=== PATIENT | female | born 1955 | race Caucasian/White ===

== ENCOUNTER 2017-04-06 18:38 | Emergency (ER) ==
[2017-04-06 18:46] VITALS: BP 160/77; TEMP 96; BMI 18.4
[2017-04-06] MEDS ORDERED: LIDOCAINE 1 % AMP 5 ML (SUTURES) SUBCUT STA (18:46)
[2017-04-06] MEDS ORDERED: TENIVAC IM ONE (18:48)
--- NOTE | 2017-04-06 19:01 | ED.PDOC ---
General ED Provider: Dr. KINJAL CANO-ER Chief Complaint: Finger Laceration Stated Complaint: i was cutting some tape and i cut my finger Time Seen by Physician: 18:45 Mode of Arrival: Walk-In Information Source: Patient, Family Exam Limitations: No limitations Primary Care Provider: ANDERS LOPEZ Nursing and Triage Documentation Reviewed and Agree: Yes Skin Complaint Exam - Laceration/Abrasion/Hand Complaint/Exam Location of Injury: Left, Digit #2 Mechanism of Injury: Laceration Onset/Duration: 45min Symptoms Are: Still present Initial Severity: Mild Current Severity: None Aggravating: Movement Alleviating: Compression Associated Signs and Symptoms: Denies: Fever, Chills, Erythema, Numbness, Tingling Differential Diagnoses: Laceration Review of Systems - Review Of Systems Constitutional: Reports: No symptoms Eyes: Reports: No symptoms Ears, Nose, Mouth, Throat: Reports: No symptoms Respiratory: Reports: No symptoms Cardiac: Reports: No symptoms GI: Reports: No symptoms : Reports: No symptoms Musculoskeletal: Reports: No symptoms Skin: Reports: No symptoms Neurological: Reports: No symptoms Endocrine: Reports: No symptoms Hematologic/Lymphatic: Reports: No symptoms All Other Systems: Reviewed and Negative Past Medical History - Past Medical History Previously Healthy: Yes Endocrine: Reports: Unknown Cardiovascular: Reports: Unknown Respiratory: Reports: Unknown Hematological: Reports: Unknown Gastrointestinal: Reports: Unknown Genitourinary: Reports: Unknown Neuro/Psych: Reports: Unknown Musculoskeletal: Reports: Unknown Cancer: Reports: Unknown Last Menstrual Period: na - Surgical History General Surgical History: Reports: Unknown - Family History Family History: Reports: Unknown - Social History Smoking Status: Never smoker Hx Substance Use: No Alcohol Screening: None Lives: With family - Immunizations Tetanus Shot up to Date: No Physical Exam - Physical Exam Appearance: Well-appearing, No pain distress, Well-nourished Pain Distress: Mild Eyes: [place], EOMI, Conjunctiva clear ENT: Ears normal, Nose normal, Oropharynx normal Neck: Supple Respiratory: Airway patent, Breath sounds clear, Breath sounds equal, Respirations nonlabored Cardiovascular: RRR, Pulses normal, No rub, No murmur GI/: Soft, Nontender, No masses, Bowel sounds normal, No Organomegaly Musculoskeletal: Normal strength, ROM intact, No edema, No calf tenderness Skin: Warm Neurological: Sensation intact, Motor intact, Reflexes intact, Cranial nerves intact, Alert, Oriented Psychiatric: Affect appropriate Procedures - Laceration/Wound Repair No standard instances Wound Description: Linear Wound Length (cm): 1.25cm index finger left hand Wound Explored: Clean Wound Irrigated: Yes Wound Prep: Hibiclens Anesthesia: Lidocaine Wound Repaired With: Sutures Suture Size and Type: 4 prolene Number of Sutures: 3 Layer Closure?: No Sterile Dressing Applied?: Yes Splint Applied?: No Sling Applied?: No Critical Care Note - Critical Care Note Total Time (mins): 0 Course - Course Orders, Labs, Meds: Orders Category Date Time Status Lidocaine HCl/Pf [Lidocaine 1 % Amp 5 ml (Sutures)] MEDS 04/06/17 18:46 Discontinued 5 ml SUBCUT ONCE STA Tetanus and Diphtheria Tox/Pf [Tenivac] MEDS 04/06/17 18:48 Discontinued 0.5 ml IM .ONCE ONE Medications Discontinued Medications Generic Name Dose Route Start Last Admin Trade Name Freq PRN Reason Stop Dose Admin Lidocaine HCl 5 ml 04/06/17 18:46 04/06/17 18:55 Lidocaine 1 % Amp 5 Ml (Sutures) SUBCUT 04/06/17 18:47 5 ml ONCE STA Administration Tetanus/Diphtheria Toxoids Adsorbed 0.5 ml 04/06/17 18:48 04/06/17 18:56 Tenivac IM 04/06/17 18:49 0.5 ml .ONCE ONE Administration Vital Signs: Temp Pulse Resp BP Pulse Ox 04/06/17 18:40 96 F L 73 16 160/77 H 97 Departure - Departure Time of Disposition: 19:01 Disposition: HOME SELF-CARE Discharge Problem: Laceration of finger Instructions: Finger Laceration (ED) Condition: Good Pt referred to PMD for follow-up: Yes Additional Instructions: sutures out in 7 days--return sooner if any signs of infection Allergies/Adverse Reactions: Allergies nabumetone [From Relafen] Adverse Reaction (Verified 03/17/15 13:24) NSAIDS (Non-Steroidal Anti-Inflamma Adverse Reaction (Verified 04/06/17 18:48) rofecoxib [From Vioxx] Adverse Reaction (Verified 03/17/15 13:24) Sulfa (Sulfonamide Antibiotics) Adverse Reaction (Unverified 06/20/13 14:04) Home Medications: Ambulatory Orders Calcium Carbonate [Calcium] 500 mg PO DAILY 06/21/13 Fexofenadine HCl [Trisha] 180 mg PO EVERY OTHER DAY 06/21/13 Montelukast Sodium [Singulair] 10 mg PO BEDTIME 06/21/13 Cary-3 Fatty Acids/Fish Oil [Fish Oil 1,000 mg Capsule] 1 each PO 1700 Tramadol HCl [Ultram] 50 mg PO BID 03/17/15 Disposition Discussed With: Patient, Family
== END 2017-04-06 19:14 | disposition home or self-care (01) ==
LOC: ED 18:38
DX: S61.211A Laceration without foreign body of left index finger without damage to nail, initial encounter (principal); W26.9XXA Contact with unspecified sharp object(s), initial encounter
CPT/HCPCS: 90471; 99283

== ENCOUNTER 2017-07-21 15:20 | Outpatient (CLI) ==
--- NOTE | 2017-07-21 16:19 | DI ---
Exam: Three x-rays of the lumbar spine. Comparison: CT performed 01/25/2016. Reason for exam: Low back pain post fall. FINDINGS: No acute fracture. There is a similar appearing anterior listhesis of L4 on L5 measuring approximate ly 8.3 mm. There is relative preservation of the lumbar lordotic curve when compared to previous imag ing. Degenerative disease is seen in the lumbosacral spine. Operative changes are seen after interv ertebral body graft spacer at L5-S1. Impression: 1. No acute fracture is seen within the lumbar spine. 2. Similar appearing anterior listhesis of L4 on L5 and operative changes at L5-S1. If clinical con cern exists, further imaging may be performed.
== END 2017-07-21 15:21 | disposition home or self-care (01) ==
LOC: RAD 15:20
PROVIDERS: ATTEND Internal Medicine
DX: M54.5 Low back pain (principal); W19.XXXA Unspecified fall, initial encounter

== ENCOUNTER 2017-07-23 18:47 | Emergency (ER) ==
[2017-07-23 18:50] VITALS: BP 132/72; TEMP 96.9; BMI 18.8
--- NOTE | 2017-07-23 19:00 | ED.PDOC ---
General ED Provider: Dr. KINJAL CANO-ER Chief Complaint: Hand Laceration Stated Complaint: was scratched by a dog claw--noting skin flap that is dark Time Seen by Physician: 18:58 Mode of Arrival: Walk-In Information Source: Patient Exam Limitations: No limitations Primary Care Provider: ANDERS LOPEZ Nursing and Triage Documentation Reviewed and Agree: Yes Skin Complaint Exam - Laceration/Abrasion/Hand Complaint/Exam Location of Injury: Left, Hand Mechanism of Injury: Abrasion, Sharp trauma Onset/Duration: one hour Symptoms Are: Still present Initial Severity: Mild Current Severity: Mild Aggravating: Movement Alleviating: Compression Associated Signs and Symptoms: Denies: Fever, Chills, Erythema, Numbness, Tingling Differential Diagnoses: Avulsion Review of Systems - Review Of Systems Constitutional: Reports: No symptoms Eyes: Reports: No symptoms Ears, Nose, Mouth, Throat: Reports: No symptoms Respiratory: Reports: No symptoms Cardiac: Reports: No symptoms GI: Reports: No symptoms : Reports: No symptoms Musculoskeletal: Reports: No symptoms Skin: Reports: No symptoms Neurological: Reports: No symptoms Endocrine: Reports: No symptoms Hematologic/Lymphatic: Reports: No symptoms All Other Systems: Reviewed and Negative Past Medical History - Past Medical History Previously Healthy: Yes Endocrine: Reports: Unknown Cardiovascular: Reports: Unknown Respiratory: Reports: Unknown Hematological: Reports: Unknown Gastrointestinal: Reports: Unknown Genitourinary: Reports: Unknown Neuro/Psych: Reports: Unknown Musculoskeletal: Reports: Unknown Cancer: Reports: Unknown Last Menstrual Period: n/a - Surgical History General Surgical History: Reports: Unknown - Family History Family History: Reports: Unknown - Social History Smoking Status: Never smoker Hx Substance Use: No Alcohol Screening: None - Immunizations Tetanus Shot up to Date: Yes (04/06/17) Physical Exam - Physical Exam Appearance: Well-appearing, No pain distress, Well-nourished Eyes: [place], EOMI, Conjunctiva clear ENT: Ears normal, Nose normal, Oropharynx normal Neck: Supple Respiratory: Airway patent Cardiovascular: RRR GI/: Soft Musculoskeletal: Normal strength Skin: Warm, Dry Neurological: Sensation intact Psychiatric: Affect appropriate, Mood appropriate Procedures - Laceration/Wound Repair No standard instances Wound Description: Flap Wound Length (cm): 1cm left hand Wound Explored: Clean Wound Irrigated: Yes Wound Prep: Hibiclens Wound Repaired With: Steri-strips Layer Closure?: No Critical Care Note - Critical Care Note Total Time (mins): 0 Course - Course Orders, Labs, Meds: Orders Category Date Time Status Wound care [ED WOUND CARE] .ONCE EMERGENCY 07/23/17 18:56 Active Vital Signs: Temp Pulse Resp BP Pulse Ox 07/23/17 18:48 96.9 F L 88 20 132/72 96 Departure - Departure Time of Disposition: 19:00 Disposition: HOME SELF-CARE Discharge Problem: Laceration of hand Instructions: Skin Avulsion (ED) Condition: Good Pt referred to PMD for follow-up: Yes Additional Instructions: keep clean and dry=--wash with soap and water and appy antb ointment till healed --keep covered till healed Allergies/Adverse Reactions: Allergies nabumetone [From Relafen] Adverse Reaction (Verified 07/23/17 18:50) NSAIDS (Non-Steroidal Anti-Inflamma Adverse Reaction (Verified 07/23/17 18:50) rofecoxib [From Vioxx] Adverse Reaction (Verified 07/23/17 18:50) Sulfa (Sulfonamide Antibiotics) Adverse Reaction (Verified 07/23/17 18:50) Home Medications: Ambulatory Orders Calcium Carbonate [Calcium] 500 mg PO DAILY 06/21/13 Montelukast Sodium [Singulair] 10 mg PO BEDTIME 06/21/13 Harper-3 Fatty Acids/Fish Oil [Fish Oil 1,000 mg Capsule] 1 each PO 1700 Tramadol HCl [Ultram] 50 mg PO BID 03/17/15 Disposition Discussed With: Patient
== END 2017-07-23 19:04 | disposition home or self-care (01) ==
LOC: ED 18:47
DX: S61.412A Laceration without foreign body of left hand, initial encounter (principal); Y93.K9 Activity, other involving animal care
CPT/HCPCS: 99282

== ENCOUNTER 2017-08-06 18:14 | Outpatient (CLI) ==
--- NOTE | 2017-08-07 07:55 | DI ---
EXAM: Cervical spine radiographs. HISTORY: Neck pain. COMPARISON: None available. TECHNIQUE: 5 views. FINDINGS: The normal curvature and alignment are maintained. Vertebral body heights are normal. Th ere is mild loss of disc height at C4-5 and C5-6. Mild multilevel endplate osteophyte formation note d. Mild uncovertebral hypertrophy and facet arthropathy noted probably causing multilevel neural for aminal narrowing on the left. No fracture or subluxation identified. Prevertebral soft tissues are unremarkable. Lung apices are clear. There are suture anchors present in both humeri. IMPRESSION: Multilevel degenerative changes as described. Consider correlation with MRI as warranted.
== END 2017-08-06 18:15 | disposition home or self-care (01) ==
LOC: RAD 18:14
PROVIDERS: ATTEND Internal Medicine
DX: M54.2 Cervicalgia (principal)

== ENCOUNTER 2017-08-18 12:08 | Outpatient (CLI) ==
--- NOTE | 2017-08-18 13:34 | MRI ---
EXAM: MRI cervical spine without IV contrast. DATE: 18 August 2017. HISTORY: Neck pain. TECHNIQUE: Sagittal and axial T1W and T2W sequences of the cervical spine along with sagittal IR and coronal T2W sequences were obtained using 1.5 Imelda magnet. No IV contrast. COMPARISON: C-spine x-rays 08/06/2017. CT head 23 Mar 2013. FINDINGS: There is no cervical scoliosis. No acute c-spine fracture, subluxation, osseous malignanc y, or jumped facet is evident. Cervical vertebrae normal in height. Bone marrow signal is overall n ormal. Tiny anterior osteophytes are seen at C4-5. Intervertebral discs are uniform in height. Cer vical and upper thoracic spinal cord reveals no syrinx, cord edema, myelomalacia, or neoplasm. Visible brainstem reveals small areas of central T2W/IR hyperintensity suggesting small vessel diseas e. There is no Chiari one malformation. A few inferior left mastoid air cells have T2W bright mucos al thickening. No suspicious neck mass, cervical lymphadenopathy, apical lung mass, pneumonia, or pl eural effusion is detected. Segmental analysis: C2-3: Normal. C3-4: Small posterior disc/osteophyte complex (1.8 mm AP) does not contact the cord. Canal is 12.6 mm AP. Minor right and mild left foraminal stenoses due to uncinate hypertrophy. C4-5: Broad posterior disc bulge (2 mm AP) does not contact the cord. Canal is 10.6 mm AP. Minor b ilateral foraminal stenoses due to uncinate hypertrophy and minor left facet disease. C5-6: Small posterior disc/osteophyte complex (2 mm AP) does not contact the cord. Canal is 10.6 mm AP. Moderate right foraminal stenosis is due to uncinate hypertrophy. C6-7: Posterior midline disc protrusion (1.2 mm AP x 5.5 mm transverse) does not contact the cord. Canal is 12.6 mm AP. Each foramen is patent. C7-T1: Normal. T1-2: Normal. IMPRESSIONS: 1. Cervical spine minor facet arthropathy and mild DDD. 2. No cervical cord compression or central canal stenosis. 3. Multilevel foraminal stenoses, especially right C5-6. 4. Moderate left mastoid air cell mucosal disease.
== END 2017-08-18 12:09 | disposition home or self-care (01) ==
LOC: RAD 12:08
PROVIDERS: ATTEND Internal Medicine
DX: M54.2 Cervicalgia (principal)

== ENCOUNTER 2018-01-11 15:17 | Outpatient (CLI) | END 2018-01-11 15:18 | disposition home or self-care (01) | LOC: LAB 15:17 | PROVIDERS: ATTEND Internal Medicine | DX: E87.1 Hypo-osmolality and hyponatremia (principal) | CPT/HCPCS: 36415; 80053 ==

== ENCOUNTER 2018-04-16 12:51 | Outpatient (CLI) | payer OTHER ==
--- NOTE | 2018-04-16 14:58 | CT ---
Exam: CT lumbar spine without intravenous contrast. Comparison: 01/25/2016. Reason for exam: Pain. FINDINGS: No acute vertebral body height loss is seen. There is similar appearing grade 1 anterior listhesis of L4 on L5. Intervertebral body graft spacer placement is seen and L5-S1. There is multi level degenerative disease with intervertebral body disc space height narrowing and osteophyte format ion. Atherosclerotic disease is seen within the abdominal aorta. T12-L1: No significant central canal or foraminal narrowing. L1-L2: Ligamentous calcification with a broad-based disc bulge resulting in impression on the thecal sac and mild to moderate central canal and foraminal narrowing. L2-L3: Broad-based disc bulge with impression on the thecal sac resulting in mild central canal and moderate foraminal stenosis. L3-L4: Broad-based disc bulge with impression on the thecal sac resulting in moderate central canal and foraminal narrowing. L4-L5: Anterior listhesis of L4 on L5 with a broad-based disc bulge resulting in moderate to marked central canal and foraminal narrowing. L5-S1: No significant central canal or foraminal narrowing. Impression: 1. No acute fracture is seen within the lumbar spine. 2. Similar appearing anterior listhesis of L4 on L5 with multilevel discogenic degenerative disease as described. 3. Similar appearing operative changes of L5-S1
--- NOTE | 2018-04-16 15:09 | CT ---
EXAM: CT left hip without contra HISTORY: Pain COMPARISON: Radiograph 11/01/2015 TECHNIQUE: CT left hip performed without intravenous contrast. Coronal and sagittal reformatted kacey ges obtained. FINDINGS: Bone mineralization is normal. No fracture or dislocation. Mild narrowing left hip joint . No focal soft tissue abnormality. Mild atherosclerotic vast calcification. IMPRESSION: Mild osteoarthritis left hip.
== END 2018-04-16 12:52 | disposition home or self-care (01) ==
LOC: RAD 12:51
PROVIDERS: ATTEND Internal Medicine
DX: M25.552 Pain in left hip (principal); M54.9 Dorsalgia, unspecified

== ENCOUNTER 2018-06-09 07:03 | Day surgery (SDC) | payer OTHER ==
[2018-06-09] MEDS: BETADINE OPTH PREP OP PRN ×2 (07:32→08:48)
[2018-06-09] MEDS: TETRACAINE 0.5% UNIT-DOSE OP PRN ×3 (07:32→08:56)
[2018-06-09] MEDS: CYCLOGYL 2% OPTH OP PRN ×3 (07:33→07:43)
[2018-06-09] MEDS ORDERED: DEX-MOXI-KETOR OPTH INJ 1/0.5/0.4 MG/ML IO ONE (07:41)
[2018-06-09] MEDS ORDERED: AK-DILATE 10% OPTH SOL OP PRN (07:41)
[2018-06-09] MEDS ORDERED: ZOFRAN 4 MG/2 ML IVP ONE (07:41)
[2018-06-09] MEDS ORDERED: LIDOCAINE 1%/PHENYLEPHRINE 1.5% BSS (SURGERY) INTRAOCULA ONE (07:41)
[2018-06-09] MEDS ORDERED: BRIMONIDINE TARTRATE 0.2% OPTH SOL OP PRN (07:41)
[2018-06-09 07:54] VITALS: TEMP 98
[2018-06-09] MEDS ORDERED: DECADRON 4 MG/ML SDV ONE (08:45)
[2018-06-09] MEDS ORDERED: VERSED ONE (08:45)
[2018-06-09] MEDS ORDERED: SUBLIMAZE ONE (08:45)
[2018-06-09] MEDS: BSS WITH EPINEPHRINE OP ONE ×2 (08:51→08:57)
[2018-06-10 11:22] VITALS: BP 124/56
== END 2018-06-09 09:40 | disposition home or self-care (01) ==
LOC: SURG 07:03
PROVIDERS: ATTEND Ophthalmology
DX: H25.13 Age-related nuclear cataract, bilateral (principal)

== ENCOUNTER 2018-06-23 07:20 | Day surgery (SDC) ==
[2018-06-23] MEDS: BETADINE OPTH PREP OP PRN ×2 (07:45→08:11)
[2018-06-23] MEDS: TETRACAINE 0.5% UNIT-DOSE OP PRN ×2 (07:45→08:11)
[2018-06-23] MEDS: CYCLOGYL 2% OPTH OP PRN ×3 (07:46→07:56)
[2018-06-23] MEDS ORDERED: ZOFRAN 4 MG/2 ML IVP ONE (07:53)
[2018-06-23] MEDS ORDERED: LIDOCAINE 1% 20 ML MDV ID STA (07:53)
[2018-06-23] MEDS ORDERED: BRIMONIDINE TARTRATE 0.2% OPTH SOL OP PRN (07:53)
[2018-06-23] MEDS ORDERED: DEX-MOXI-KETOR OPTH INJ 1/0.5/0.4 MG/ML IO ONE (07:53)
[2018-06-23] MEDS ORDERED: DECADRON 4 MG/ML SDV ONE (08:19)
[2018-06-23] MEDS ORDERED: TORADOL ONE (08:19)
[2018-06-23] MEDS ORDERED: SUBLIMAZE ONE (08:19)
[2018-06-23] MEDS ORDERED: VERSED ONE (08:19)
[2018-06-23] MEDS: LIDOCAINE 1%/PHENYLEPHRINE 1.5% BSS (SURGERY) INTRAOCULA ONE ×2 (08:28→08:29)
[2018-06-23] MEDS: BSS WITH EPINEPHRINE OP ONE ×2 (08:28→08:29)
[2018-06-23 11:06] VITALS: TEMP 97.6
[2018-06-23 16:30] VITALS: BP 128/78
== END 2018-06-23 09:15 | disposition home or self-care (01) ==
LOC: SURG 07:20
PROVIDERS: ATTEND Ophthalmology
DX: H25.11 Age-related nuclear cataract, right eye (principal)

== ENCOUNTER 2018-08-17 09:53 | Outpatient (CLI) | payer OTHER ==
--- NOTE | 2018-08-17 11:33 | DI ---
EXAM: Two views of the chest. History: Cough. Comparison: Chest radiograph 01/30/2015 Findings: Heart size is normal. No focal consolidation. No appreciable pleural fluid and no pneumo thorax. Calcified granulomas again seen within the thorax. No acute osseous abnormalities. Impression: No acute cardiopulmonary process. Old granulomatous disease. No change compared to the prior study.
== END 2018-08-17 09:54 | disposition home or self-care (01) ==
LOC: RAD 09:53
PROVIDERS: ATTEND Internal Medicine
DX: R05 Cough (principal)

== ENCOUNTER 2018-08-23 13:03 | Outpatient (CLI) | payer OTHER ==
--- NOTE | 2018-08-23 15:18 | DEXA ---
EXAM: Bone densitometry. History: Menopausal state. Findings: Evaluation of the left hip reveals a total bone mineral density of 0.797 grams per centimeter squared with T-score of negative 1.7. Evaluation of the right hip reveals a total bone mineral density of 0.761 grams per centimeter square d with T-score of negative 2.0. Impression: Osteopenia of the bilateral hips
== END 2018-08-23 13:04 | disposition home or self-care (01) ==
LOC: RAD 13:03
PROVIDERS: ATTEND Nurse Practitioner
DX: Z12.31 Encounter for screening mammogram for malignant neoplasm of breast (principal); Z78.0 Asymptomatic menopausal state
CPT/HCPCS: 77067

== ENCOUNTER 2021-04-10 18:57 | Inpatient (IN) ==
--- NOTE | 2021-04-10 19:22 | ED.PDOC ---
General ED Provider: Dr. KINJAL AVILES Chief Complaint: Constipation Stated Complaint: no bm for 6 days Time Seen by Provider: 04/10/21 18:58 Mode of Arrival: Walk-In Information Source: Patient Primary Care Provider: ANDERS LOPEZ Nursing and Triage Documentation Reviewed and Agree: Yes Does patient meet sepsis criteria?: No System Inflammatory Response Syndrome: Not Applicable Sepsis Protocol: For patient's 13 years and over: Temp is 96.8 and below OR 101 and greater Pulse >90 BPM Resp >20/minute Acutely Altered Mental Status Are patient's symptoms suggestive of a new infection, such as: -Pneumonia -Skin, Soft Tissue -Endocarditis -UTI -Bone, Joint Infection -Implantable Device -Acute Abdominal Infection -Wound Infection -Meningitis -Blood Stream Catheter Infection -Unknown GI Complaint Exam Abdominal Pain Complaint/Exam Onset: Gradual Duration: 6 days Symptoms Are: Still present Timing: Constant Initial Severity: Mild Current Severity: Moderate Location of Pain: Diffuse Character: Reports Dull and Aching Aggravating: Reports None Alleviating: Reports None Associated Signs and Symptoms: Reports Constipation Patient Rh Status: Unknown Abdominal Findings: Present None Differential Diagnoses: Constipation Review of Systems Review Of Systems Constitutional: Reports No symptoms Eyes: Reports No symptoms Ears, Nose, Mouth, Throat: Reports No symptoms Respiratory: Reports No symptoms Cardiac: Reports No symptoms GI: Reports Constipated : Reports No symptoms Musculoskeletal: Reports No symptoms Skin: Reports No symptoms Neurological: Reports No symptoms Endocrine: Reports No symptoms Hematologic/Lymphatic: Reports No symptoms All Other Systems: Reviewed and Negative [facility] Medical History Active asthma Leg length discrepancy Scoliosis Family History FATHER Cancer CHF (congestive heart failure) Mother CHF (congestive heart failure) AUNT Diabetes Ovarian cancer Social History Smoking and tobacco status: Never smoker Passive smoking exposure: No Second hand smoke exposure: No Smoking risk assessment performed: No Alcohol intake: current Alcohol intake frequency: holidays/special occasions only Counseling given: No Counseling provided: none Counseling given: No Counseling provided: none Adopted: No Caregiver/support person: No Foster care: No Household members: spouse Housing: house Marital status: M Lives independently: Yes Number of children: 0 Financial difficulty paying for basics: not very hard service: No FDC: No Current occupational status: retired Current occupational exposures/hazards: No Pets and animals: Yes History of recent travel: No Sexually active: Yes Do you think of yourself as: straight/heterosexual Current gender identity: female Seatbelt use: always Helmet use: No Drives intoxicated 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 Water heater temperature set < 120 degrees: Yes Working smoke detector in home: Yes Fire extinguisher in home: Yes Carbon monoxide detector in home: Yes Firearms in home: No Surgical History History of shoulder replacement Previous back surgery Total knee replacement status Female Reproductive History Menstrual Hx Hysterectomy: Yes (2005) Hx Tubal Ligation: No Physical Exam Physical Exam Appearance: Reports Well-appearing Ill-appearing: Not Applicable Pain Distress: Mild Eyes: Reports [place], EOMI and Conjunctiva clear ENT: Reports Ears normal, Nose normal and Oropharynx normal Neck: Supple Respiratory: Reports Airway patent, Breath sounds clear and Breath sounds equal Cardiovascular: Reports RRR, Pulses normal, No rub and No murmur GI/: Reports Soft, Nontender, No masses and Bowel sounds normal Musculoskeletal: Reports Normal strength Skin: Reports Warm Neurological: Reports Sensation intact Psychiatric: Reports Affect appropriate and Mood appropriate Interpretation Radiology Interpretation Radiology Interpretation By: Radiologist Radiology Results: Positive Exam Interpreted: CT Scan Critical Care Note Critical Care Note Total Critical Care Time (mins): 0 Course Course Hematology/Chemistry: 04/10/21 19:50 04/10/21 19:50 Orders, Labs, Meds: Lab Review 04/10/21 04/10/21 19:50 19:50 WBC 7.10 RBC 3.65 L Hgb 11.6 L Hct 33.6 L MCV 92.1 MCH 31.8 H MCHC 34.5 RDW Coeff of Olivia 11.4 L Plt Count 332 Immature Gran % (Auto) 0.3 Neut % (Auto) 63.1 Lymph % (Auto) 23.9 Thurston % (Auto) 8.7 Eos % (Auto) 3.0 Baso % (Auto) 1.0 Neut # (Auto) 4.5 Lymph # (Auto) 1.7 Thurston # (Auto) 0.6 Eos # (Auto) 0.2 Baso # (Auto) 0.1 Immature Gran # (Auto) 0.0 Sodium 122.0 L Potassium 3.90 Chloride 85.6 L Carbon Dioxide 31.0 H Anion Gap 9.30 BUN 17.8 H Creatinine 0.89 Estimated GFR (MDRD) 63.00 BUN/Creatinine Ratio 20.00 Glucose 93.4 Calcium 8.32 L Total Bilirubin 0.41 AST 54.4 H ALT 32.9 Alkaline Phosphatase 74.7 Total Protein 7.03 Albumin 4.35 Globulin 2.68 Albumin/Globulin Ratio 1.62 Orders Category Date Time Status ED ENEMA/RECTAL TUBE .ONCE EMERGENCY 04/10/21 19:42 Active ED IV/MEDIPORT/POWERPORT .ONCE EMERGENCY 04/10/21 20:20 Active CBC W/ AUTO DIFF Stat LAB 04/10/21 19:50 Completed COMPREHENSIVE METABOLIC PANEL Stat LAB 04/10/21 19:50 Completed RESPIRATORY PANEL 2.1 (PCR) Stat LAB 04/10/21 Ordered THYROID STIMULATING HORMONE Stat LAB 04/10/21 19:50 Received URINALYSIS C & S IF INDICATED Stat LAB 04/10/21 20:19 Uncollected 0.9 % Sodium Chloride [Saline Flush] MEDS 04/10/21 20:20 Ordered 1 syr IVF PRN PRN Sodium Chloride 0.9% [Sodium Chloride] 1,000 ml MEDS 04/10/21 20:20 Active IV 100 mls/hr CT ABDOMEN/PELVIS WO CONTRAST Stat RADS 04/10/21 19:10 Completed Medications Generic Name Dose Route Start Last Admin Trade Name Freq PRN Reason Stop Dose Admin Sodium Chloride 1,000 mls @ 100 mls/hr 04/10/21 20:20 Sodium Chloride IV 04/11/21 06:19 .Q10H STA Sodium Chloride 1 syr 04/10/21 20:20 0.9% Sodium Chloride 10 Ml Disp.Syrin IVF PRN PRN To flush IV Vital Signs: Temp Pulse Resp BP Pulse Ox 04/10/21 18:58 97.1 F L 101 H 20 151/84 H 97 Discharge Plan Discharge Patient Disposition: ADMITTED INPATIENT Discharge Problem: Constipation, Acute hyponatremia Prescriptions: No Action montelukast [Singulair] 10 MG tablet 10 mg PO BEDTIME RF: 0 calcium carbonate [Calcium 500] 500 MG tablet 500 mg PO BID RF: 0 telmisartan-hydrochlorothiazid [Micardis HCT] 1 EACH tablet 1 tab PO BID RF: 0 budesonide-formoterol [Symbicort] 1 PUFF HFA aerosol inhaler 2 inh INH DAILY RF: 0 Combivent Respimat 1 SPRAY mist 1 inh INH QID PRN (Reason: SHORT OF BREATH/WHEEZING) RF: 0 clonidine HCl 0.1 mg Tablet 0.1 mg PO 12 RF: 0 oxycodone-acetaminophen [Percocet] 7.5-325 mg Tablet 1 tab PO Q6-8H PRN (Reason: Pain) RF: 0 ED Provider: KINJAL AVILES Condition: Good Physician Progress Note: []
--- NOTE | 2021-04-10 19:38 | CT ---
EXAM: CT scan of the abdomen and pelvis without contrast HISTORY: Constipation. TECHNIQUE: Helical imaging of the abdomen pelvis was performed without IV contrast. 3 mm thin axial images and coronal and sagittal reconstructions were provided for interpretation. Comparison 05/09/2015. FINDINGS: No acute abnormalities are seen within the liver, spleen. The proximal ureters are normal size. The small bowel loops are normal caliber. There is a large amount of stool seen throughout t he colon. There is no bowel wall thickening. There is no free air. There is a large amount stool s een within the rectum and sigmoid colon. No retroperitoneal abnormalities are seen. Lung bases are clear. No lytic or blastic lesions are seen within the osseous structures. Postoperative changes of fusion are seen within the lower lumbar spine. IMPRESSION: There is a large amount stool seen throughout the colon compatible with the patients his tory of constipation. There is no evidence of small bowel obstruction. All CT scans are performed using dose optimization techniques as appropriate to the performed exam an d include at least one of the following: Automated exposure control, adjustment of the mA and/or kV according t o size, and the use of iterative reconstruction technique.
[2021-04-10 19:55] LABS: BASOPHILS # (AUTO) 0.1 K/uL (0-0.2); EOSINOPHILS # (AUTO) 0.2 K/ul (0.0-0.7); HEMATOCRIT 33.6 % (37.0-47.0); HEMOGLOBIN 11.6 g/dl (12.0-16.0); IMMATURE GRANULOCYTE % (AUTO) 0.3 % (0.0-5.0); LYMPHOCYTES # (AUTO) 1.7 K/uL (0.60-3.4); LYMPHOCYTES % (AUTO) 23.9 (10.0-50.0); MEAN CORPUSCULAR HEMOGLOBIN 31.8 pg (27.0-31.0); MEAN CORPUSCULAR HGB CONC 34.5 (31.8-35.4); MEAN CORPUSCULAR VOLUME 92.1 fl (81.0-99.0); MONOCYTES # (AUTO) 0.6 K/uL (0.4-2.0); MONOCYTES % (AUTO) 8.7 (0-10); NEUTROPHILS # (AUTO) 4.5 K/ul (2.0-6.9); NEUTROPHILS % (AUTO) 63.1 % (42.2-75.2); PLATELET COUNT 332 10^3/uL (140-440); RDW COEFFICIENT OF VARIATION 11.4 % (11.6-14.8); RED BLOOD COUNT 3.65 10^6/ul (4.20-5.40)
[2021-04-10 20:07] LABS: ALANINE AMINOTRANSFERASE 32.9 U/L (0-35); ALBUMIN 4.35 g/dL (3.5-5.0); ALKALINE PHOSPHATASE 74.7 U/L (53-141); ASPARTATE AMINO TRANSFERASE 54.4 U/L (14-36); BILIRUBIN,TOTAL 0.41 mg/dL (0.2-1.3); BLOOD UREA NITROGEN 17.8 mg/dL (7-17); CALCIUM 8.32 mg/dL (8.4-10.2); CHLORIDE 85.6 mmol/L (98-107); CREATININE 0.89 mg/dL (0.60-1.30); GLUCOSE 93.4 mg/dL (74-106); POTASSIUM 3.9 mmol/L (3.5-5.1); TOTAL PROTEIN 7.03 g/dL (6.3-8.2)
[2021-04-10] MEDS ORDERED: SODIUM CHLORIDE 1,000 ML IV STA (20:20)
[2021-04-10] MEDS ORDERED: COMBIVENT RESPIMAT INHALER IH PRN (20:25)
[2021-04-10 20:34] LABS: BORDETELLA PARAPERTUSSIS (PCR) NOT DETECTED (NOT DETECT); BORDETELLA PERTUSSIS (PCR) NOT DETECTED (NOT DETECT); CHLAMYDIA PNEUMONIAE (PCR) NOT DETECTED (NOT DETECT); CORONAVIRUS 229E (PCR) NOT DETECTED (NOT DETECT); CORONAVIRUS HKU1 (PCR) NOT DETECTED (NOT DETECT); CORONAVIRUS NL63 (PCR) NOT DETECTED (NOT DETECT); CORONAVIRUS OC43 (PCR) NOT DETECTED (NOT DETECT); HUMAN METAPNEUMOVIRUS (PCR) NOT DETECTED (NOT DETECT); HUMAN RHINOVIRUS/ENTEROV (PCR) NOT DETECTED (NOT DETECT); INFLUENZA B (PCR) NOT DETECTED (NOT DETECT); MYCOPLASMA PNEUMONIAE (PCR) NOT DETECTED (NOT DETECT); PARAINFLUENZA VIRUS 1 (PCR) NOT DETECTED (NOT DETECT); PARAINFLUENZA VIRUS 2 (PCR) NOT DETECTED (NOT DETECT); PARAINFLUENZA VIRUS 3 (PCR) NOT DETECTED (NOT DETECT); PARAINFLUENZA VIRUS 4 (PCR) NOT DETECTED (NOT DETECT); RESPIRATORY SYNCYTIAL V (PCR) NOT DETECTED (NOT DETECT); SARS_COV_2 (PCR) NOT DETECTED (NOT DETECT)
[2021-04-10] MEDS ORDERED: TELMISARTAN HYDROCHLOROTHIAZID PO SCH (21:00)
[2021-04-10] MEDS ORDERED: SINGULAIR PO SCH (21:00)
[2021-04-10] MEDS ORDERED: CALCIUM CARBONATE 500 MG PO SCH (21:00)
[2021-04-10 21:21] LABS: ADENOVIRUS (PCR) NOT DETECTED (NOT DETECT)
[2021-04-10 22:22] VITALS: BMI 21.8
[2021-04-11 00:25] LABS: BILIRUBIN,URINE NEGATIVE (NEGATIVE); CLARITY,URINE CLEAR (CLEAR); COLOR,URINE YELLOW (YELLOW); GLUCOSE, URINE (UA) NEGATIVE (NEGATIVE); KETONES,URINE NEGATIVE (NEGATIVE); LEUKOCYTE ESTERASE ,URINE NEGATIVE (NEGATIVE); NITRITE,URINE NEGATIVE (NEGATIVE); PH,URINE 7.5 (5-9); PROTEIN,URINE NEGATIVE (NEGATIVE); URINE, BLOOD Trace (NEGATIVE); UROBILINOGEN,URINE 0.2 (0.2)
[2021-04-11 00:26] LABS: SQUAMOUS EPITHELIAL CELL,UR 0-2 (0-5); URINE RBC, MICROSCOPIC 0-2 (0-2)
[2021-04-11] MEDS: PERCOCET 7.5-325 PO PRN ×2 (01:27→07:21)
[2021-04-11] MEDS: VISTARIL PO PRN ×2 (01:27→07:17)
[2021-04-11 05:17] VITALS: BP 151/83; TEMP 97.8
[2021-04-11 05:26] LABS: BASOPHILS # (AUTO) 0.1 K/uL (0-0.2); BASOPHILS % (AUTO) 1.3 % (0.0-3.0); EOSINOPHILS # (AUTO) 0.2 K/ul (0.0-0.7); EOSINOPHILS % (AUTO) 4.2 % (0.0-7.0); HEMATOCRIT 33.3 % (37.0-47.0); HEMOGLOBIN 11.1 g/dl (12.0-16.0); IMMATURE GRANULOCYTE % (AUTO) 0.2 % (0.0-5.0); LYMPHOCYTES # (AUTO) 1.3 K/uL (0.60-3.4); LYMPHOCYTES % (AUTO) 27.7 (10.0-50.0); MEAN CORPUSCULAR HEMOGLOBIN 30.7 pg (27.0-31.0); MEAN CORPUSCULAR HGB CONC 33.3 (31.8-35.4); MEAN CORPUSCULAR VOLUME 92.2 fl (81.0-99.0); MONOCYTES # (AUTO) 0.4 K/uL (0.4-2.0); MONOCYTES % (AUTO) 7.6 (0-10); NEUTROPHILS # (AUTO) 2.8 K/ul (2.0-6.9); PLATELET COUNT 286 10^3/uL (140-440); RDW COEFFICIENT OF VARIATION 11.3 % (11.6-14.8); RED BLOOD COUNT 3.61 10^6/ul (4.20-5.40); WHITE BLOOD COUNT 4.76 K/ul (4.6-10.2)
[2021-04-11 05:39] LABS: ALANINE AMINOTRANSFERASE 29.8 U/L (0-35); ALBUMIN 3.82 g/dL (3.5-5.0); ALKALINE PHOSPHATASE 65.7 U/L (53-141); ASPARTATE AMINO TRANSFERASE 44.5 U/L (14-36); BILIRUBIN,TOTAL 0.3 mg/dL (0.2-1.3); BLOOD UREA NITROGEN 15.2 mg/dL (7-17); CALCIUM 8.03 mg/dL (8.4-10.2); CARBON DIOXIDE 29.3 mmol/L (22-30.0); CHLORIDE 90.4 mmol/L (98-107); CREATININE 0.8 mg/dL (0.60-1.30); GLUCOSE 98.8 mg/dL (74-106); POTASSIUM 4.02 mmol/L (3.5-5.1); SODIUM 124.6 mmol/L (134.5-145); TOTAL PROTEIN 6.4 g/dL (6.3-8.2)
--- NOTE | 2021-04-11 08:23 | DI ---
EXAM: Abdomen one view HISTORY: Constipation COMPARISON: None FINDINGS: There are no dilated loops of small bowel. There is air and stool throughout the colon wi th severe fecal retention.There are no abnormal calcifications. There are no acute abnormalities of the bones. L4-S1 postoperative changes. IMPRESSION: 1. Nonobstructive bowel gas pattern. 2. Severe fecal retention.
[2021-04-11] MEDS ORDERED: SODIUM CHLORIDE 1,000 ML IV SCH (08:30)
[2021-04-11] MEDS ORDERED: CITRATE OF MAGNESIA PO STA (08:33)
[2021-04-11] MEDS ORDERED: LOVENOX SUBCUT SCH (09:00)
[2021-04-11] MEDS ORDERED: SYMBICORT 160-4.5 MCG INHALER IH SCH (09:00)
[2021-04-11] MEDS ORDERED: COMBIVENT RESPIMAT INHALER IH PRN (09:28)
[2021-04-11] MEDS ORDERED: CATAPRES PO PRN (09:28)
[2021-04-11] MEDS ORDERED: ZOFRAN TAB PO PRN (09:28)
[2021-04-11] MEDS ORDERED: SYMBICORT 80-4.5 MCG INHALER IH SCH (09:30)
[2021-04-11] MEDS ORDERED: NIFEREX 150 PO SCH (09:30)
[2021-04-11] MEDS ORDERED: PROTONIX PO SCH (09:30)
[2021-04-11] MEDS ORDERED: AMITIZA PO SCH (09:30)
[2021-04-11] MEDS ORDERED: AMOXICILLIN PO SCH (09:30)
[2021-04-11] MEDS ORDERED: PAMELOR PO SCH (09:30)
[2021-04-11] MEDS ORDERED: NON-FORMULARY MEDICATION (Telmisartan-Hydrochlorothiazid 40-12.5 mg tablet) PO SCH (09:30)
[2021-04-11] MEDS ORDERED: LINACLOTIDE 145 MCG PO SCH (09:30)
[2021-04-11] MEDS ORDERED: NEURONTIN PO SCH (09:30)
--- NOTE | 2021-04-11 09:32 | PCM.PROG ---
Attending Provider: ATTENDING PROVIDER: Dr. ANDERS LOPEZ This patient is seen with Jacqueline James, Nurse Practitioner. DATE OF SERVICE: 04/11/21 SUBJECTIVE: This 66 year old /WHITE F was hospitalized 04/10/21. The patient is resting comfortably. She still has not had a bowel movement this morning. The patient states she has not had a bowel movement in 6 days. Sodium slight improved. REVIEW OF SYSTEMS: CONSTITUTIONAL: No night sweats. No fatigue, malaise, lethargy. No fever or chills. HEENT: Eyes: No visual changes. No eye pain. No eye discharge. ENT: No runny no se. No epistaxis. No sinus pain. No odynophagia. No congestion. RESPIRATORY: No cough, no congestion. No hemoptysis. No shortness of breath. CARDIOVASCULAR: No angina symptoms. No CHF symptoms. No atypical chest pain for CAD. No palpitations. No orthopnea.. GASTROINTESTINAL: Constipation. No abdominal pain. No nausea or vomiting. No diarrhea. No hematemesis. No hematochezia. GENITOURINARY: No urgency. No frequency. No dysuria. No hematuria. No obstructive symptoms. No discharge. No pain. No significant abnormal bleeding. MUSCULOSKELETAL: No musculoskeletal pain; no joint swelling. NEUROLOGICAL: Awake, alert, oriented to time, place and person. No headache. No neck pain. No syncope. No seizures. No dizziness. PSYCHIATRIC: Not anxious. No depression. No suicidal thoughts. No homicidal tho ughts. SKIN: No rash. No lesions. No wounds. ENDOCRINE: No unexplained weight loss. No weight gain. HEMATOLOGIC/LYMPHATIC: No anemia. No purpura. No petechiae. No prolonged or excessive bleeding. No palpable lymph nodes. PHYSICAL EXAMINATION: GENERAL: The patient is awake, alert and oriented, lying/sitting in bed in no distress. VITAL SIGNS: Temperature 97.8 F, Pulse 71, Respiratory Rate 18, BP 151/83, Pulse Ox 97% HEENT: Head normocephalic, atraumatic. Eyes: Extraocular muscles are intact. Pupils are equal, round and reactive to light and accommodation. Ears: No lesions. Nose appeared normal. Throat: No exudate or erythema. NECK: Supple. No JVD, no carotid bruit. No lymphadenopathy or thyromegaly. LUNGS: Clear to auscultation. Percussion note normal. Chest symmetrical. HEART: S1, S2, no S3. No murmurs. No cyanosis or clubbing. No ascites. P ulses: Dorsalis pedis and posterior tibial pulses +1 to +2 both sides. ABDOMEN: Soft. Non-tender. Bowel sounds active. No CVA tenderness. No mass felt. EXTREMITIES: No edema. Full range of motion of all extremities, equal. NEUROLOGIC: No focal deficit. Cranial nerves II through XII are grossly intact. No headache. No double vision. SKIN: Not dry. Intact. Turgor-normal. LYMPHATIC: No palpable lymph nodes/no lymphedema. MUSCULOSKELETAL: Normal joints with no swelling. Muscle tone is normal. LAB REVIEW: 04/11/21 05:01 04/11/21 05:01 04/11/21 05:01: Sodium 124.6 L, Potassium 4.02, Chloride 90.4 L, Carbon Dioxide 29.3, Anion Gap 8.92, BUN 15.2, Creatinine 0.80, Estimated GFR (MDRD) 71.00, BUN/Creatinine Ratio 19.00, Glucose 98.8, Calcium 8.03 L, Total Bilirubin 0.30, AST 44.5 H, ALT 29.8, Alkaline Phosphatase 65.7, Total Protein 6.40, Albumin 3.82, Globulin 2.58, Albumin/Globulin Ratio 1.48 04/11/21 05:01: WBC 4.76, RBC 3.61 L, Hgb 11.1 L, Hct 33.3 L, MCV 92.2, MCH 30.7, MCHC 33.3, RDW Coeff of Olivia 11.3 L, Plt Count 286, Immature Gran % (Auto) 0.2, Neut % (Auto) 59.0, Lymph % (Auto) 27.7, Charlton % (Auto) 7.6, Eos % (Auto) 4.2, Baso % (Auto) 1.3, Neut # (Auto) 2.8, Lymph # (Auto) 1.3, Charlton # (Auto) 0.4, Eos # (Auto) 0.2, Baso # (Auto) 0.1, Immature Gran # (Auto) 0.0 04/10/21 22:30: Urine Color Yellow, Urine Clarity Clear, Urine pH 7.5, Ur Specific [place] 1.020, Urine Protein Negative, Urine Glucose (UA) Negative, Urine Ketones Negative, Urine Blood Trace H, Urine Nitrite Negative, Urine Bilirubin Negative, Urine Urobilinogen 0.2, Ur Leukocyte Esterase Negative, Urine Microscopic RBC 0-2, Ur Squamous Epith Cells 0-2 04/10/21 20:25: Adenovirus (PCR) Not detected, B. pertussis DNA (PCR) Not detected, B.parapertussis DNA PCR Not detected, C. pneumoniae DNA (PCR) Not detected, Coronavirus OC43 (PCR) Not detected, Coronavirus HKU1 (PCR) Not detected, Coronavirus 229E (PCR) Not detected, Coronavirus NL63 (PCR) Not detected, Human Metapneumovir PCR Not detected, Influenza Type A (PCR) Not detected, Influenza B (RT-PCR) Not detected, M. pneumoniae (PCR) Not detected, Parainfluenza 1 (PCR) Not detected, Parainfluenza 2 (PCR) Not detected, Parainfluenza 3 (PCR) Not detected, Parainfluenza 4 (PCR) Not detected, RSV (PCR) Not detected, Entero/Rhino (PCR) Not detected, SARS-CoV-2 (PCR) Not detected 04/10/21 19:50: Sodium 122.0 L, Potassium 3.90, Chloride 85.6 L, Carbon Dioxide 31.0 H, Anion Gap 9.30, BUN 17.8 H, Creatinine 0.89, Estimated GFR (MDRD) 63.00, BUN/Creatinine Ratio 20.00, Glucose 93.4, Calcium 8.32 L, Total Bilirubin 0.41, AST 54.4 H, ALT 32.9, Alkaline Phosphatase 74.7, Total Protein 7.03, Albumin 4.35, Globulin 2.68, Albumin/Globulin Ratio 1.62 04/10/21 19:50: WBC 7.10, RBC 3.65 L, Hgb 11.6 L, Hct 33.6 L, MCV 92.1, MCH 31.8 H, MCHC 34.5, RDW Coeff of Olivia 11.4 L, Plt Count 332, Immature Gran % (Auto) 0.3, Neut % (Auto) 63.1, Lymph % (Auto) 23.9, Charlton % (Auto) 8.7, Eos % (Auto) 3.0, Baso % (Auto) 1.0, Neut # (Auto) 4.5, Lymph # (Auto) 1.7, Charlton # (Auto) 0 .6, Eos # (Auto) 0.2, Baso # (Auto) 0.1, Immature Gran # (Auto) 0.0 04/10/21 19:50: TSH 3.470 ASSESSMENT: Please see below. 1. Constipation. 2. Hyponatremia. 3. Chronic anemia. 4. Chronic back pain. PLAN: 1. Movantik 25 mg daily. 2. D/C Lovenox. 3. 1/2 bottle of Mag Citrate. 4. Fleet's enema. 5. IV NS @ 75 cc/hr. Plan and coordination of the patient's care discussed in the presence of Paper Coater and nurse. CONDITION: Stable SCRIBED BY: MAYUR ORTEGA, Surface Grinder scribed while in presence of service performed by Dr. Lopez/Jacqueline James APRN on 04/11/21 ([id number])
[2021-04-11] MEDS ORDERED: HYDROCHLOROTHIAZIDE PO SCH (10:30)
[2021-04-11] MEDS ORDERED: CLARITIN PO SCH (10:30)
[2021-04-11] MEDS ORDERED: MICARDIS PO SCH (10:30)
[2021-04-11] MEDS ORDERED: CATAPRES PO SCH (12:00)
[2021-04-11] MEDS ORDERED: COMBIVENT RESPIMAT INHALER IH SCH (13:00)
--- NOTE | 2021-04-11 13:48 | DI ---
EXAM: Chest two views HISTORY: Shortness of breath COMPARISON: 08/17/2018 TECHNIQUE: Two views of the chest were performed FINDINGS: Normal heart size. Normal mediastinal contour. The lungs are clear. No pleural effusion or pneumothorax. No acute osseous abnormality. Right chest arthroplasty. IMPRESSION: No acute cardiopulmonary process.
[2021-04-11] MEDS ORDERED: [UNRECOGNIZED DRUG - REMARK] PO SCH (17:00)
[2021-04-11] MEDS ORDERED: REMERON PO SCH (21:00)
[2021-04-11] MEDS ORDERED: SINGULAIR PO SCH (21:00)
--- NOTE | 2021-04-24 13:16 | SSS ---
DATE OF SERVICE: 04/10/21 (ADMIT) -- 04/11/21 (DISCHARGE) CODE STATUS: FULL CODE REASON FOR CONSULTATION/ADMISSION: Constipation for 7 days, hyponatremia. HISTORY OF PRESENT ILLNESS: 66-year-old white female presented to the Emergency Department on 04/10/21 with complaint of not having a bowel movement for 6 days, attempted enema with no results. Rectal bleeding noted (bright red mucus). The patient is currently on Amoxicillin for UTI. REVIEW OF SYSTEMS: CONSTITUTIONAL: No night sweats. No fatigue, malaise, lethargy. No fever or chills. HEENT: Eyes: No visual changes. No eye pain. No eye discharge. ENT: No runny nose. No epistaxis. No sinus pain. No sore throat. No odynophagia. No ear pain. No congestion. RESPIRATORY: No cough, no congestion. No hemoptysis. No shortness of breath. CARDIOVASCULAR: No angina symptoms. No CHF symptoms. No atypical chest pain for CAD. No palpitations. No orthopnea. GASTROINTESTINAL: Firm area to upper abdominal area from hernia. No abdominal pain. No nausea or vomiting. No diarrhea or constipation. No hematemesis. No hematochezia. GENITOURINARY: Frequency and burning upon urination. No significant abnormal bleeding. MUSCULOSKELETAL: Low back pain. No joint swelling. NEUROLOGICAL: Awake, alert, oriented x4. Forgetful. No headache. No neck pain. No syncope. No seizures. No dizziness. The patient is up on her own without assistive device (states uses cane outdoors). PSYCHIATRIC: Anxious. No depression. No suicidal thoughts. No homicidal thoughts. SKIN: Dry. No rash. No lesions. No wounds. ENDOCRINE: No unexplained weight loss. No weight gain. HEMATOLOGIC/LYMPHATIC: No anemia. No purpura. No petechiae. No prolonged or excessive bleeding. No palpable lymph nodes. PAST HISTORY: Bilateral hand pain Constipation Snoring Hypertension COPD Asthma Severe generalized osteoarthritis Right shoulder revision, Dr. Ross Cervical and lumbar radiculopathy Left knee bursitis Status post spinal fusion L4-L5 Left hip osteoarthritis Falling bladder Left TKR - Dr Ross 07/15 Sleep apnea, Dr. Hastings, the patient to be fitted for C-pap. PERSONAL/FAMILY HISTORY/SOCIAL HISTORY: Lives with spouse. Uses cane outdoors. PHYSICAL EXAMINATION: GENERAL: The patient is pleasant, anxious, forgetful, upper abdominal hernia. Steady ambulation. VITAL SIGNS: Temperature 97.1, pulse 101, respiratory rate 20, BP 151/84. 02 sat 92% on room air. Height 5'7", weight 139 lbs. HEENT: Head normocephalic, atraumatic. Eyes: Extraocular muscles are intact. Pupils are equal, round and reactive to light and accommodation. Ears: No lesions. Nose appeared normal. Throat: No exudate or erythema. NECK: Supple. No JVD, no carotid bruit. No lymphadenopathy or thyromegaly. LUNGS: Clear to auscultation. Percussion note normal. Chest symmetrical. HEART: S1, S2, no S3. No murmurs. No cyanosis or clubbing. No ascites. Pulses: Dorsalis pedis and posterior tibial pulses +1 to +2 bilaterally. ABDOMEN: Soft. Mild distention. Bowel sounds active. No CVA tenderness. No mass felt. EXTREMITIES: No edema. Full range of motion of all extremities, equal. NEUROLOGIC: No focal deficit. Cranial nerves II through XII are grossly intact. No headache, no double vision or headache. SKIN: Dry. Intact. Turgor - normal. LYMPHATIC: No palpable lymph nodes/no lymphedema. MUSCULOSKELETAL: Normal joints with no swelling. Muscle tone is normal. Old/present records reviewed Office records reviewed. EDUCATION CARRIED OUT ABOUT: Narcotics and constipation. ALLERGIES: NSAIDS, SULFA, NABUMETONE, ROFECOXIB, LATEX MEDICATIONS: Combivent MDI, Symbicort MDI, Protonix, Zofran p.o., Amoxicillin, Trisha, Poly Iron, Clonidine p.r.n., Xtampza ER, Singulair, Telmisartan-HCTZ, Remeron, Nortriptyline, Gabapentin LABS/EKG'S/X-RAY/ECHO/ABG: Echocardiogram 07/10/20, LVEF 60%, normal. WBC less than 10, hemoglobin 11.6, platelets 332, hematocrit 33.6. Sodium 122.0, chloride 85.6, BUN 17.8, glucose 93.4, K+ 3.90, c02 31.0, creatinine 0.89. admit labs. 04/11/21 WBC 4.76, hemoglobin 11.1, platelets 286, hematocrit 33.3. Sodium 124.6, chloride 90.4, BUN 15.2, glucose 98.8, K+ 4.02, c02 29.3, creatinine 0.80. CT abdomen and pelvis without: Large amount of stools in the colon. Abdominal x-ray: L4-S1 postop changes, severe fecal retention in colon. UA within normal limits. TSH 3.470. PCR negative. PROGRESS NOTES: See EMR. Rectal declined, patient stating "I am fine." Three large BM's this a.m. No blood - occult negative. Case Discussed with Attending Physician: Case Discussed with Family: Yes DIAGNOSES: 1. Severe constipation - impaction. 2. Hyponatremia. 3. Severe generalized DJD 4. Dyslipidemia 6. Asthma/COPD RECOMMENDATIONS/PLAN: 1. D/C Linzess 2. Start Amitiza 24 mcg p.o. b.i.d. 3. Office Followup 04/16/21 @ 11:15 4. Followup with CPAP use. 5. Continue all other home medications. 6. Rectal - bright red bloody - few spots from straining - none seen in the hospital. Declined colonoscopy for now. TIME SPENT: More than 70 minutes. JAVIERD
== END 2021-04-11 12:57 | disposition home or self-care (01) | DRG 641 ==
LOC: ED 18:57 → MEDSURG A 21:28
PROVIDERS: ADMIT Internal Medicine; ATTEND Internal Medicine
DX: Z20.822 Contact with and (suspected) exposure to COVID-19; E78.5 Hyperlipidemia, unspecified; D64.9 Anemia, unspecified; J44.9 Chronic obstructive pulmonary disease, unspecified; E87.1 Hypo-osmolality and hyponatremia

== ENCOUNTER 2021-08-18 15:49 | Inpatient (IN) ==
[2021-08-18] MEDS ORDERED: GI COCKTAIL PO ONE (16:37)
[2021-08-18 16:53] LABS: BASOPHILS # (AUTO) 0.1 K/uL (0-0.2); BASOPHILS % (AUTO) 0.9 % (0.0-3.0); EOSINOPHILS # (AUTO) 0.1 K/ul (0.0-0.7); EOSINOPHILS % (AUTO) 2.1 % (0.0-7.0); HEMATOCRIT 31.8 % (37.0-47.0); HEMOGLOBIN 10.6 g/dl (12.0-16.0); IMMATURE GRANULOCYTE % (AUTO) 0.2 % (0.0-5.0); LYMPHOCYTES # (AUTO) 0.8 K/uL (0.60-3.4); LYMPHOCYTES % (AUTO) 14.8 (10.0-50.0); MEAN CORPUSCULAR HEMOGLOBIN 30.9 pg (27.0-31.0); MEAN CORPUSCULAR HGB CONC 33.3 (31.8-35.4); MEAN CORPUSCULAR VOLUME 92.7 fl (81.0-99.0); MONOCYTES # (AUTO) 0.4 K/uL (0.4-2.0); PLATELET COUNT 291 10^3/uL (140-440); RDW COEFFICIENT OF VARIATION 12.3 % (11.6-14.8); RED BLOOD COUNT 3.43 10^6/ul (4.20-5.40); WHITE BLOOD COUNT 5.28 K/ul (4.6-10.2)
[2021-08-18 16:56] LABS: BILIRUBIN,URINE Negative (NEGATIVE); CLARITY,URINE Clear (CLEAR); COLOR,URINE Yellow (YELLOW); GLUCOSE, URINE (UA) Negative (NEGATIVE); KETONES,URINE Negative (NEGATIVE); LEUKOCYTE ESTERASE ,URINE Negative (NEGATIVE); NITRITE,URINE Negative (NEGATIVE); PH,URINE 6.5 (5-9); PROTEIN,URINE Negative (NEGATIVE); URINE, BLOOD Negative (NEGATIVE); UROBILINOGEN,URINE 0.2 (0.2)
[2021-08-18 17:10] LABS: ALBUMIN 4.26 g/dL (3.5-5.0); ALKALINE PHOSPHATASE 65.7 U/L (53-141); ASPARTATE AMINO TRANSFERASE 44.9 U/L (14-36); BILIRUBIN,TOTAL 0.44 mg/dL (0.2-1.3); BLOOD UREA NITROGEN 14.3 mg/dL (7-17); CALCIUM 8.94 mg/dL (8.4-10.2); CARBON DIOXIDE 31.7 mmol/L (22-30.0); CHLORIDE 89.6 mmol/L (98-107); CREATININE 0.86 mg/dL (0.60-1.30); GLUCOSE 103.1 mg/dL (74-106); LIPASE 267.4 U/L (23-300); POTASSIUM 3.92 mmol/L (3.5-5.1); SODIUM 127.5 mmol/L (134.5-145); TOTAL PROTEIN 7.18 g/dL (6.3-8.2)
[2021-08-18] MEDS ORDERED: SODIUM CHLORIDE 500 ML IV STA (17:39)
--- NOTE | 2021-08-18 18:02 | CT ---
EXAM: CT scan of the abdomen and pelvis with contrast HISTORY: Constipation. History of hysterectomy TECHNIQUE: Helical imaging of the abdomen pelvis was performed following the intravenous administrat ion of contrast. 3 mm thin axial images and coronal and sagittal reconstructions were obtained. Comparison CT scan of the abdomen pelvis dated 04/10/2021. FINDINGS: The liver, spleen, kidneys appear normal. The proximal ureters are normal size. The smal l bowel loops are normal caliber. There is a large amount of stool seen throughout the colon. There is no bowel wall thickening. There is no free air. The appendix was not seen. No definite inflamm atory changes are seen in the right lower quadrant. There is no free fluid seen within the pelvis. There is stool seen distending the rectum and sigmoid colon. There has been previous hysterectomy. No lytic or blastic lesions are seen within the osseo us structures. IMPRESSION: Persistent constipation. There is no definite bowel obstruction. All CT scans are performed using dose optimization techniques as appropriate to the performed exam an d include at least one of the following: Automated exposure control, adjustment of the mA and/or kV according t o size, and the use of iterative reconstruction technique.
--- NOTE | 2021-08-18 18:06 | CT ---
EXAM: CT scan brain without contrast HISTORY: Trauma COMPARISON: CT scan brain 03/23/2013 FINDINGS: Contiguous axial images obtained from skull base to the convexities without contrast utili zing 5-mm collimation. Sagittal and coronal reconstructions were imaged and reviewed.. The ventricl es and CSF spaces are prominent compatible with age appropriate atrophy. There is periventricular hy podensity noted compatible with chronic microvascular disease. There are no acute intracranial findi ngs. The visualized paranasal sinuses and mastoid air cells are clear.. . Stable right arachnoid g ranulations are seen in both frontal bones. IMPRESSION: No acute findings. All CT scans are performed using dose optimization techniques as appropriate to the performed exam an d include at least one of the following: Automated exposure control, adjustment of the mA and/or kV according t o size, and the use of iterative reconstruction technique.
[2021-08-18] MEDS ORDERED: TORADOL IM ONE (18:31)
[2021-08-18 18:45] LABS: BORDETELLA PARAPERTUSSIS (PCR) NOT DETECTED (NOT DETECT); BORDETELLA PERTUSSIS (PCR) NOT DETECTED (NOT DETECT); CHLAMYDIA PNEUMONIAE (PCR) NOT DETECTED (NOT DETECT); CORONAVIRUS 229E (PCR) NOT DETECTED (NOT DETECT); CORONAVIRUS HKU1 (PCR) NOT DETECTED (NOT DETECT); CORONAVIRUS NL63 (PCR) NOT DETECTED (NOT DETECT); CORONAVIRUS OC43 (PCR) NOT DETECTED (NOT DETECT); HUMAN METAPNEUMOVIRUS (PCR) NOT DETECTED (NOT DETECT); HUMAN RHINOVIRUS/ENTEROV (PCR) NOT DETECTED (NOT DETECT); INFLUENZA B (PCR) NOT DETECTED (NOT DETECT); MYCOPLASMA PNEUMONIAE (PCR) NOT DETECTED (NOT DETECT); PARAINFLUENZA VIRUS 1 (PCR) NOT DETECTED (NOT DETECT); PARAINFLUENZA VIRUS 2 (PCR) NOT DETECTED (NOT DETECT); PARAINFLUENZA VIRUS 3 (PCR) NOT DETECTED (NOT DETECT); PARAINFLUENZA VIRUS 4 (PCR) NOT DETECTED (NOT DETECT); RESPIRATORY SYNCYTIAL V (PCR) NOT DETECTED (NOT DETECT); SARS_COV_2 (PCR) NOT DETECTED (NOT DETECT)
--- NOTE | 2021-08-18 18:45 | ED.PDOC ---
General ED Provider: Dr. KIERAN MONGE MD Chief Complaint: Constipation Stated Complaint: no stool in 5 days. Time Seen by Provider: 08/18/21 15:51 Mode of Arrival: Wheelchair Information Source: Patient and Family Exam Limitations: No limitations Primary Care Provider: ANDRES LOPEZ Nursing and Triage Documentation Reviewed and Agree: Yes Does patient meet sepsis criteria?: No If yes, has appropriate treatment been initiated?: No System Inflammatory Response Syndrome: Not Applicable Sepsis Protocol: For patient's 13 years and over: Temp is 96.8 and below OR 101 and greater Pulse >90 BPM Resp >20/minute Acutely Altered Mental Status Are patient's symptoms suggestive of a new infection, such as: -Pneumonia -Skin, Soft Tissue -Endocarditis -UTI -Bone, Joint Infection -Implantable Device -Acute Abdominal Infection -Wound Infection -Meningitis -Blood Stream Catheter Infection -Unknown GI Complaint Exam Abdominal Pain Complaint/Exam Onset: Gradual Duration: 5 days Symptoms Are: Still present Timing: Constant Initial Severity: Mild Current Severity: Mild Radiates To: Reports Back Character: Reports Aching Aggravating: Reports None Alleviating: Reports None Associated Signs and Symptoms: Denies Diaphoresis, Fever, Cough, Chest pain, Dizziness, Back pain, Constipation, Blood in stool, Dysuria, Urinary frequency, Decreased urine output, Decreased appetite, Vaginal bleeding, Vaginal discharge, Nausea, Vomiting, Diarrhea, Sore throat or Decreased activity Abdominal Findings: Present Abdominal distention; Absent CVA Tenderness Differential Diagnoses: Bowel Obstruction, Constipation, Gastroenteritis and UTI Review of Systems Review Of Systems Constitutional: Reports No symptoms Eyes: Reports No symptoms Ears, Nose, Mouth, Throat: Reports No symptoms Respiratory: Reports No symptoms Cardiac: Reports No symptoms GI: Reports Abdomen distended, Constipated and Nausea : Reports No symptoms Musculoskeletal: Reports Back pain Skin: Reports No symptoms Neurological: Reports No symptoms Endocrine: Reports No symptoms Hematologic/Lymphatic: Reports No symptoms All Other Systems: Reviewed and Negative FOR[facility]LY [facility] Medical History Asthma Leg length discrepancy Obstructive sleep apnea Scoliosis Family History FATHER Cancer CHF (congestive heart failure) Mother CHF (congestive heart failure) AUNT Diabetes Ovarian cancer Social History Smoking and tobacco status: Never smoker Passive smoking exposure: No Second hand smoke exposure: No Smoking risk assessment performed: No Alcohol intake: current Alcohol intake frequency: holidays/special occasions only Counseling given: No Counseling provided: none Counseling given: No Counseling provided: none Adopted: No Caregiver/support person: No Foster care: No Household members: spouse Housing: house Marital status: M Lives independently: Yes Number of children: 0 Financial difficulty paying for basics: not very hard service: No FCI: No Current occupational status: retired Current occupational exposures/hazards: No Pets and animals: Yes History of recent travel: No Sexually active: Yes Do you think of yourself as: straight/heterosexual Current gender identity: female Seatbelt use: always Helmet use: No Drives intoxicated or rides with intoxicated speedboat driver: No Water heater temperature set < 120 degrees: Yes Working smoke detector in home: Yes Fire extinguisher in home: Yes Carbon monoxide detector in home: Yes Firearms in home: No Surgical History History of left shoulder replacement History of lumbar spinal fusion History of total left knee replacement (TKR) S/P foot surgery, right Female Reproductive History Menstrual Hx Hysterectomy: Yes (2005) Hx Tubal Ligation: No Physical Exam Physical Exam Appearance: Reports Well-appearing and Thin Ill-appearing: Mild Pain Distress: Mild Eyes: Reports [place], EOMI and Conjunctiva clear ENT: Reports Ears normal, Nose normal and Oropharynx normal Neck: Supple Respiratory: Reports Airway patent, Breath sounds clear and Breath sounds equal Cardiovascular: Reports RRR, Pulses normal, No rub and No murmur GI/: Reports Soft, Nontender, No masses, Bowel sounds normal and No Organomegaly Musculoskeletal: Reports Normal strength, ROM intact, No edema and No calf tenderness Skin: Reports Warm, Dry and Normal color Neurological: Reports Sensation intact, Motor intact, Reflexes intact, Cranial nerves intact, Alert and Oriented Psychiatric: Reports Affect appropriate and Mood appropriate Interpretation Radiology Interpretation Radiology Interpretation By: Radiologist Exam Interpreted: CT Scan Xray Comments: constipation Re-Evaluation Re-Evaluation Time of Re-Evaluation: 21:10 Status: Improved Vital Signs Stable: Yes Pain Level: 2 Appearance: NAD Lungs: Clear Skin: Warm and Dry Neuro: Alert and Oriented X3 CV: RRR Re-Evaluation Status: Worse Critical Care Note Critical Care Note Total Critical Care Time (mins): 0 Course Course Hematology/Chemistry: 08/18/21 16:48 08/18/21 16:48 Orders, Labs, Meds: Lab Review 08/18/21 08/18/21 08/18/21 16:15 16:48 16:48 WBC 5.28 RBC 3.43 L Hgb 10.6 L Hct 31.8 L MCV 92.7 MCH 30.9 MCHC 33.3 RDW Coeff of Olivia 12.3 Plt Count 291 Immature Gran % (Auto) 0.2 Neut % (Auto) 75.0 Lymph % (Auto) 14.8 [place] % (Auto) 7.0 Eos % (Auto) 2.1 Baso % (Auto) 0.9 Neut # (Auto) 4.0 Lymph # (Auto) 0.8 [place] # (Auto) 0.4 Eos # (Auto) 0.1 Baso # (Auto) 0.1 Immature Gran # (Auto) 0.0 Sodium 127.5 L Potassium 3.92 Chloride 89.6 L Carbon Dioxide 31.7 H Anion Gap 10.12 BUN 14.3 Creatinine 0.86 Estimated GFR (MDRD) 66.00 BUN/Creatinine Ratio 16.62 Glucose 103.1 Lactic Acid Calcium 8.94 Total Bilirubin 0.44 AST 44.9 H ALT 28.0 Alkaline Phosphatase 65.7 Total Protein 7.18 Albumin 4.26 Globulin 2.92 Albumin/Globulin Ratio 1.45 Lipase 267.4 Urine Color Yellow Urine Clarity Clear Urine pH 6.5 Ur Specific [place] 1.020 Urine Protein Negative Urine Glucose (UA) Negative Urine Ketones Negative Urine Blood Negative Urine Nitrite Negative Urine Bilirubin Negative Urine Urobilinogen 0.2 Ur Leukocyte Esterase Negative Adenovirus (PCR) B. pertussis DNA (PCR) B.parapertussis DNA PCR C. pneumoniae DNA (PCR) Coronavirus OC43 (PCR) Coronavirus HKU1 (PCR) Coronavirus 229E (PCR) Coronavirus NL63 (PCR) Human Metapneumovir PCR Influenza Type A (PCR) Influenza B (RT-PCR) M. pneumoniae (PCR) Parainfluenza 1 (PCR) Parainfluenza 2 (PCR) Parainfluenza 3 (PCR) Parainfluenza 4 (PCR) RSV (PCR) Entero/Rhino (PCR) SARS-CoV-2 (PCR) 08/18/21 08/18/21 16:48 18:25 WBC RBC Hgb Hct MCV MCH MCHC RDW Coeff of Olivia Plt Count Immature Gran % (Auto) Neut % (Auto) Lymph % (Auto) [place] % (Auto) Eos % (Auto) Baso % (Auto) Neut # (Auto) Lymph # (Auto) [place] # (Auto) Eos # (Auto) Baso # (Auto) Immature Gran # (Auto) Sodium Potassium Chloride Carbon Dioxide Anion Gap BUN Creatinine Estimated GFR (MDRD) BUN/Creatinine Ratio Glucose Lactic Acid < 0.50 L Calcium Total Bilirubin AST ALT Alkaline Phosphatase Total Protein Albumin Globulin Albumin/Globulin Ratio Lipase Urine Color Urine Clarity Urine pH Ur Specific [place] Urine Protein Urine Glucose (UA) Urine Ketones Urine Blood Urine Nitrite Urine Bilirubin Urine Urobilinogen Ur Leukocyte Esterase Adenovirus (PCR) Not detected B. pertussis DNA (PCR) Not detected B.parapertussis DNA PCR Not detected C. pneumoniae DNA (PCR) Not detected Coronavirus OC43 (PCR) Not detected Coronavirus HKU1 (PCR) Not detected Coronavirus 229E (PCR) Not detected Coronavirus NL63 (PCR) Not detected Human Metapneumovir PCR Not detected Influenza Type A (PCR) Not detected Influenza B (RT-PCR) Not detected M. pneumoniae (PCR) Not detected Parainfluenza 1 (PCR) Not detected Parainfluenza 2 (PCR) Not detected Parainfluenza 3 (PCR) Not detected Parainfluenza 4 (PCR) Not detected RSV (PCR) Not detected Entero/Rhino (PCR) Not detected SARS-CoV-2 (PCR) Not detected Orders Category Date Time Status NPO REMINDER: IMAGING ONCE CARE 08/18/21 16:38 Completed CBC W/ AUTO DIFF Stat LAB 08/18/21 16:48 Completed COMPREHENSIVE METABOLIC PANEL Stat LAB 08/18/21 16:48 Completed LACTIC ACID Stat LAB 08/18/21 16:48 Completed LIPASE Stat LAB 08/18/21 16:48 Completed RESPIRATORY PANEL 2.1 (PCR) Stat LAB 08/18/21 18:25 Completed URINALYSIS C & S IF INDICATED Stat LAB 08/18/21 16:15 Completed Ketorolac Tromethamine [Toradol] MEDS 08/18/21 18:31 Discontinued 60 mg IM ONCE ONE Mag-Al Plus//Lidocaine [Gi Cocktail] MEDS 08/18/21 16:37 Discontinued 30 ml PO ONCE ONE Sodium Chloride 0.9% [Sodium Chloride] 500 ml MEDS 08/18/21 17:[address] ABDOMEN/PELVIS W CONTRAST Stat RADS 08/18/21 16:[address] HEAD W/O CONTRAST Stat RADS 08/18/21 17:25 Completed Medications Generic Name Dose Route Start Last Admin Trade Name Freq PRN Reason Stop Dose Admin Albuterol/Ipratropium 1 spray 08/18/21 21:00 08/18/21 22:12 Ipratropium/Albuterol Sulfate Inhalation [place] Aer.W.Adap IH 1 spray QID MCKAYLA Administration Budesonide/Formoterol Fumarate 2 puff 08/18/21 21:00 08/18/21 22:12 Budesonide/Formoterol Fumarate 80/4.5 Mcg Hfa.Aer.Ad IH 2 puff BID MCKAYLA Administration Clonidine 0.1 mg 08/18/21 20:51 08/18/21 22:11 Clonidine Hcl 0.1 Mg Tablet PO 0.1 mg DAILY PRN Administration Blood Pressure Docusate Sodium 100 mg 08/18/21 20:44 08/18/21 22:11 Docusate Sodium 100 Mg Capsule PO 100 mg BID PRN Administration Constipation Gabapentin 100 mg 08/19/21 09:00 Gabapentin 100 Mg Capsule PO DAILY [facility] Hydrochlorothiazide 12.5 mg 08/19/21 09:00 Hydrochlorothiazide 25 Mg Tablet PO DAILY [facility] Sodium Chloride 1,000 mls @ 75 mls/hr 08/18/21 21:00 Sodium Chloride IV .[id number] [facility] Loratadine 10 mg 08/19/21 09:00 Loratadine 10 Mg Tablet PO DAILY [facility] Magnesium Hydroxide 30 ml 08/18/21 20:44 Magnesium Hydroxide 30 Ml Cup PO BID PRN Contractions Montelukast Sodium 10 mg 08/18/21 21:00 08/18/21 22:11 Montelukast Sodium 10 Mg Tablet PO 10 mg BEDTIME MCKAYLA Administration Non-Formulary Medication 13.5 mg 08/18/21 21:00 Oxycodone Myristate [Xtampza Er] PO BID [facility] Nortriptyline HCl 10 mg 08/19/21 09:00 Nortriptyline Hcl 10 Mg Capsule PO DAILY [facility] Ondansetron HCl 4 mg 08/18/21 20:44 Ondansetron Hcl/Pf 4 Mg/2 Ml Sdv IVP Q6H PRN Nausea / Vomiting Ondansetron HCl 4 mg 08/18/21 21:31 Ondansetron Hcl 4 Mg Tablet PO TID PRN Nausea / Vomiting Pantoprazole Sodium 40 mg 08/19/21 09:00 Pantoprazole Sodium 40 Mg Vial IVP DAILY MCKAYLA Pantoprazole Sodium 40 mg 08/19/21 06:30 Pantoprazole Sodium 40 Mg Tablet.Dr PO DAILY MCKAYLA Polysaccharide Iron Complex 150 mg 08/19/21 09:00 Iron Polysaccharide Complex 150 Mg Capsule PO DAILY MCKAYLA Telmisartan 40 mg 08/19/21 09:00 Telmisartan 40 Mg Tablet PO DAILY MCKAYLA Discontinued Medications Generic Name Dose Route Start Last Admin Trade Name Freq PRN Reason Stop Dose Admin Al Hydroxide/Mg Hydroxide 30 ml 08/18/21 16:37 08/18/21 17:09 Mag-Al Plus//Lidocaine 30 Ml Btl PO 08/18/21 16:38 30 ml ONCE ONE Administration Sodium Chloride 500 mls @ 500 mls/hr 08/18/21 17:39 08/18/21 18:32 Sodium Chloride IV 08/18/21 18:38 500 mls/hr BOLUS STA Administration Ketorolac Tromethamine 60 mg 08/18/21 18:31 08/18/21 18:46 Ketorolac Tromethamine 60 Mg/2 Ml Vial IM 08/18/21 18:32 60 mg ONCE ONE Administration Vital Signs: Temp Pulse Resp BP Pulse Ox 08/18/21 15:50 97.3 F L 79 16 155/85 H 98 Discharge Plan Discharge Patient Disposition: ADMITTED INPATIENT Discharge Problem: Constipation, Acute hyponatremia, Edema of lower extremity Back ache Qualifiers: Back pain location: low back pain Chronicity: unspecified Back pain laterality: midline Sciatica presence: without sciatica Qualified Code(s): M54.50 - Low back pain, unspecified ED Provider: KIERAN MONGE Condition: Serious Physician Progress Note: []Pt was d/w Dr Lopez: for admission, see the orders.
[2021-08-18 19:33] LABS: ADENOVIRUS (PCR) NOT DETECTED (NOT DETECT)
[2021-08-18] MEDS ORDERED: MILK OF MAGNESIA PO PRN (20:44)
[2021-08-18] MEDS ORDERED: COLACE PO PRN (20:44)
[2021-08-18] MEDS ORDERED: ZOFRAN 4 MG/2 ML IVP PRN (20:44)
[2021-08-18 21:00] VITALS: BMI 20.7
[2021-08-18] MEDS ORDERED: ZOFRAN TAB PO PRN (21:31)
[2021-08-18] MEDS: SODIUM CHLORIDE 1,000 ML IV SCH ×2 (21:45→23:30)
[2021-08-18] MEDS: SINGULAIR PO SCH (22:11)
[2021-08-18] MEDS: CATAPRES PO PRN (22:11)
[2021-08-18] MEDS: COMBIVENT RESPIMAT INHALER IH SCH (22:12)
[2021-08-18] MEDS: SYMBICORT 80-4.5 MCG INHALER IH SCH (22:12)
[2021-08-19] MEDS: MORPHINE 2 MG/ML IVP ONE ×2 (02:40→02:56)
[2021-08-19] MEDS ORDERED: MORPHINE 2 MG/ML IVP ONE (04:16)
[2021-08-19 05:02] LABS: BASOPHILS # (AUTO) 0.1 K/uL (0-0.2); BASOPHILS % (AUTO) 1.3 % (0.0-3.0); EOSINOPHILS # (AUTO) 0.1 K/ul (0.0-0.7); EOSINOPHILS % (AUTO) 2.7 % (0.0-7.0); HEMATOCRIT 30.6 % (37.0-47.0); HEMOGLOBIN 10.2 g/dl (12.0-16.0); IMMATURE GRANULOCYTE % (AUTO) 0.2 % (0.0-5.0); LYMPHOCYTES # (AUTO) 1.2 K/uL (0.60-3.4); LYMPHOCYTES % (AUTO) 24.6 (10.0-50.0); MEAN CORPUSCULAR HEMOGLOBIN 30.6 pg (27.0-31.0); MEAN CORPUSCULAR HGB CONC 33.3 (31.8-35.4); MEAN CORPUSCULAR VOLUME 91.9 fl (81.0-99.0); MONOCYTES # (AUTO) 0.4 K/uL (0.4-2.0); MONOCYTES % (AUTO) 8.6 (0-10); NEUTROPHILS % (AUTO) 62.6 % (42.2-75.2); PLATELET COUNT 286 10^3/uL (140-440); RDW COEFFICIENT OF VARIATION 12.2 % (11.6-14.8); RED BLOOD COUNT 3.33 10^6/ul (4.20-5.40); WHITE BLOOD COUNT 4.79 K/ul (4.6-10.2)
[2021-08-19 05:09] LABS: ALANINE AMINOTRANSFERASE 30.1 U/L (0-35); ALBUMIN 4.15 g/dL (3.5-5.0); ALKALINE PHOSPHATASE 64.7 U/L (53-141); ASPARTATE AMINO TRANSFERASE 44.8 U/L (14-36); BILIRUBIN,TOTAL 0.32 mg/dL (0.2-1.3); CALCIUM 8.46 mg/dL (8.4-10.2); CARBON DIOXIDE 30.3 mmol/L (22-30.0); CREATININE 0.73 mg/dL (0.60-1.30); GLUCOSE 95.7 mg/dL (74-106); POTASSIUM 3.89 mmol/L (3.5-5.1); SODIUM 123.3 mmol/L (134.5-145); TOTAL PROTEIN 7.1 g/dL (6.3-8.2)
[2021-08-19] MEDS: CATAPRES PO PRN (06:09)
[2021-08-19] MEDS ORDERED: PROTONIX PO SCH (06:30)
--- NOTE | 2021-08-19 08:47 | PCM.PROG ---
Attending Provider: ATTENDING PROVIDER: Dr. ANDERS LOPEZ This patient is seen with Jacqueline James, Nurse Practitioner. DATE OF SERVICE: 08/19/21 SUBJECTIVE: This 66 year old /WHITE F was hospitalized 08/18/21. The patient has yet to have a bowel movement. She is anxious this morning. We had previously started her on Amitiza at last hospital visit and the patient did not continue. Discussed half-way opioid use with half-way constipation. REVIEW OF SYSTEMS: CONSTITUTIONAL: No night sweats. No fatigue, malaise, lethargy. No fever or chills. HEENT: Eyes: No visual changes. No eye pain. No eye discharge. ENT: No runny nose. No epistaxis. No sinus pain. No odynophagia. No congestion. RESPIRATORY: No cough, no congestion. No hemoptysis. No shortness of breath. CARDIOVASCULAR: No angina symptoms. No CHF symptoms. No atypical chest pain for CAD. No palpitations. No orthopnea.. GASTROINTESTINAL: No abdominal pain. No nausea or vomiting. Constipation. No hematemesis. No hematochezia. GENITOURINARY: No urgency. No frequency. No dysuria. No hematuria. No obstructi ve symptoms. No discharge. No pain. No significant abnormal bleeding. MUSCULOSKELETAL: No musculoskeletal pain; no joint swelling. Leg edema. NEUROLOGICAL: Awake, alert, oriented to time, place and person. No headache. No neck pain. No syncope. No seizures. No dizziness. PSYCHIATRIC: Anxious. No depression. No suicidal thoughts. No homicidal thoughts. SKIN: No rash. No lesions. No wounds. ENDOCRINE: No unexplained weight loss. No weight gain. HEMATOLOGIC/LYMPHATIC: No anemia. No purpura. No petechiae. No prolonged or excessive bleeding. No palpable lymph nodes. PHYSICAL EXAMINATION: GENERAL: The patient is awake, alert and oriented, sitting in bed in no distress. VITAL SIGNS: Temperature 98.3 F, Pulse 78, Respiratory Rate 18, BP 178/94, Pulse Ox 100% HEENT: Head normocephalic, atraumatic. Eyes: Extraocular muscles are intact. Pupils are equal, round and reactive to light and accommodation. Ears: No lesions. Nose appeared normal. Throat: No exudate or erythema. NECK: Supple. No JVD, no carotid bruit. No lymphadenopathy or thyromegaly. LUNGS: Clear to auscultation. Percussion note normal. Chest symmetrical. HEART: S1, S2, no S3. No murmurs. No cyanosis or clubbing. No ascites. Pulses: Dorsalis pedis and posterior tibial pulses +1 to +2 both sides. ABDOMEN: Soft. Non-tender. Bowel sounds active. No CVA tenderness. No mass felt. EXTREMITIES: +1 pedal edema. Full range of motion of all extremities, equal. NEUROLOGIC: No focal deficit. Cranial nerves II through XII are grossly intact. No headache. No double vision. SKIN: Not dry. Intact. Turgor-normal. LYMPHATIC: No palpable lymph nodes/no lymphedema. MUSCULOSKELETAL: Normal joints with no swelling. Muscle tone is normal. LAB REVIEW: 08/19/21 04:41 08/19/21 04:41 08/19/21 04:41: Sodium 123.3 L, Potassium 3.89, Chloride 86.0 L, Carbon Dioxide 30.3 H, Anion Gap 10.89, BUN 15.0, Creatinine 0.73, Estimated GFR (MDRD) 79.00, BUN/Creatinine Ratio 20.54, Glucose 95.7, Calcium 8.46, Total Bilirubin 0.32, AST 44.8 H, ALT 30.1, Alkaline Phosphatase 64.7, Total Protein 7.10, Albumin 4.15, Globulin 2.95, Albumin/Globulin Ratio 1.40 08/19/21 04:41: WBC 4.79, RBC 3.33 L, Hgb 10.2 L, Hct 30.6 L, MCV 91.9, MCH 30.6, MCHC 33.3, RDW Coeff of [place] 12.2, Plt Count 286, Immature Gran % (Auto) 0.2, Neut % (Auto) 62.6, Lymph % (Auto) 24.6, [place] % (Auto) 8.6, Eos % (Auto) 2.7, Baso % (Auto) 1.3, Neut # (Auto) 3.0, Lymph # (Auto) 1.2, [place] # (Auto) 0.4, Eos # (Auto) 0.1, Baso # (Auto) 0.1, Immature Gran # (Auto) 0.0 08/18/21 18:25: Adenovirus (PCR) Not detected, B. pertussis DNA (PCR) Not detected, B.parapertussis DNA PCR Not detected, C. pneumoniae DNA (PCR) Not detected, Coronavirus OC43 (PCR) Not detected, Coronavirus HKU1 (PCR) Not detected, Coronavirus 229E (PCR) Not detected, Coronavirus NL63 (PCR) Not detected, Human Metapneumovir PCR Not detected, Influenza Type A (PCR) Not detected, Influenza B (RT-PCR) Not detected, M. pneumoniae (PCR) Not detected, Parainfluenza 1 (PCR) Not detected, Parainfluenza 2 (PCR) Not detected, Parainfluenza 3 (PCR) Not detected, Parainfluenza 4 (PCR) Not detected, RSV (PCR) Not detected, Entero/Rhino (PCR) Not detected, SARS-CoV-2 (PCR) Not detected 08/18/21 16:48: Lactic Acid < 0.50 L 08/18/21 16:48: Sodium 127.5 L, Potassium 3.92, Chloride 89.6 L, Carbon Dioxide 31.7 H, Anion Gap 10.12, BUN 14.3, Creatinine 0.86, Estimated GFR (MDRD) 66.00, BUN/Creatinine Ratio 16.62, Glucose 103.1, Calcium 8.94, Total Bilirubin 0.44, A ST 44.9 H, ALT 28.0, Alkaline Phosphatase 65.7, Total Protein 7.18, Albumin 4.26, Globulin 2.92, Albumin/Globulin Ratio 1.45, Lipase 267.4 08/18/21 16:48: WBC 5.28, RBC 3.43 L, Hgb 10.6 L, Hct 31.8 L, MCV 92.7, MCH 30.9, MCHC 33.3, RDW Coeff of [place] 12.3, Plt Count 291, Immature Gran % (Auto) 0.2, Neut % (Auto) 75.0, Lymph % (Auto) 14.8, [place] % (Auto) 7.0, Eos % (Auto) 2.1, Baso % (Auto) 0.9, Neut # (Auto) 4.0, Lymph # (Auto) 0.8, [place] # (Auto) 0.4, Eos # (Auto) 0.1, Baso # (Auto) 0.1, Immature Gran # (Auto) 0.0 08/18/21 16:15: Urine Color Yellow, Urine Clarity Clear, Urine pH 6.5, Ur Specific [place] 1.020, Urine Protein Negative, Urine Glucose (UA) Negative, Urine Ketones Negative, Urine Blood Negative, Urine Nitrite Negative, Urine Bilirubin Negative, Urine Urobilinogen 0.2, Ur Leukocyte Esterase Negative ASSESSMENT: Please see below. 1. Constipation 2. Bilateral leg edema 3. Anxiety 4. Hypertension 5. FPC opioid use for chronic pain. PLAN: 1. Amitiza twice a day 2. Bilateral venous scan 3. Xana 0.25mg BID 4. Hold Hydrochlorothiazide 5. Elevate legs Plan and coordination of the patient's care discussed in the presence of Atomic Spectroscopist and nurse. SCRIBED BY: Dwayne WYNNE scribed while in presence of service performed by Dr. Lopez/Jacqueline James APRN on 08/19/21 ([id number])
[2021-08-19] MEDS: COMBIVENT RESPIMAT INHALER IH SCH ×4 (08:52→20:58)
[2021-08-19] MEDS: SYMBICORT 80-4.5 MCG INHALER IH SCH ×2 (08:54→20:58)
[2021-08-19] MEDS ORDERED: HYDROCHLOROTHIAZIDE PO SCH (09:00)
[2021-08-19] MEDS: [UNRECOGNIZED DRUG - REMARK] PO SCH ×2 (09:02→21:00)
[2021-08-19] MEDS: PAMELOR PO SCH (09:05)
[2021-08-19] MEDS: FLONASE NAS SCH (09:05)
[2021-08-19] MEDS: NEURONTIN PO SCH (09:06)
[2021-08-19] MEDS: NIFEREX 150 PO SCH (09:06)
[2021-08-19] MEDS: MICARDIS PO SCH (09:06)
[2021-08-19] MEDS: AMITIZA PO SCH ×2 (09:06→20:57)
[2021-08-19] MEDS: CLARITIN PO SCH (09:06)
[2021-08-19] MEDS: XANAX PO SCH ×2 (09:07→20:57)
[2021-08-19] MEDS ORDERED: LASIX IVP ONE (11:46)
[2021-08-19] MEDS ORDERED: DECADRON IM ONE (11:56)
[2021-08-19] MEDS ORDERED: TORADOL IVP ONE (11:56)
[2021-08-19] MEDS: PROTONIX IV IVP SCH (12:02)
--- NOTE | 2021-08-19 12:49 | US ---
EXAM: Bilateral lower extremity venous doppler. HISTORY: Bilateral lower extremity pain and swelling. COMPARISON: None. TECHNIQUE: A duplex Doppler study was performed consisting of integrated two dimensional (2D) real-t coreen imaging color flow Doppler and Doppler spectral analysis utilizing linear array probes. FINDINGS: There is normal flow, venous waveforms, compressibility and augmentation of flow within th e right and left common femoral, greater saphenous, profunda, femoral, popliteal, posterior tibial, a nterior tibial and peroneal veins. IMPRESSION: No evidence for right or left lower extremity deep vein thrombosis at the levels examined.
--- NOTE | 2021-08-19 14:54 | HP ---
DATE OF SERVICE: 08/18/2021 REASON FOR HOSPITALIZATION/HISTORY OF PRESENT ILLNESS: 66 year old white female who presents to the emergency room complaining of abdominal pain and leg swelling. She has not had a bowel movement in 5 days. PAST MEDICAL HISTORY: Bilateral hand pain Constipation Snoring likely sleep apnea Hypertension COPD Asthma Severe generalized osteoarthritis C spine and L spine radiculopathy Left knee bursitis Left hip osteoarthritis Falling bladder PAST SURGICAL HISTORY: L4 L5 spinal fusion Left total knee replacement 07/[address] Ross REVIEW OF SYSTEMS: CONSTITUTIONAL: No night sweats. No fatigue, malaise, lethargy. No fever or chills. HEENT: Eyes: No visual changes. No eye pain. No eye discharge. ENT: No runny nose. No epistaxis. No sinus pain. No sore throat. No odynophagia. No ear pain. No congestion. RESPIRATORY: No cough, no congestion. No hemoptysis. No shortness of breath. CARDIOVASCULAR: No angina symptoms. No CHF symptoms. No atypical chest pain for CAD. No palpitations. No PND. No orthopnea. GASTROINTESTINAL: Abdominal pain. No nausea or vomiting. No diarrhea or constipation. No hematemesis. No hematochezia. GENITOURINARY: No urgency. No frequency. No dysuria. No hematuria. No obstructive symptoms. No discharge. No pain. No significant abnormal bleeding. MUSCULOSKELETAL: No musculoskeletal pain. No joint swelling. No arthritis. Leg edema NEUROLOGICAL: No headache. No neck pain. No syncope. No seizures. No dizziness. PSYCHIATRIC: Not anxious. No depression. No suicidal thoughts. No homicidal thoughts. SKIN: No rash. No lesions. No wounds. ENDOCRINE: No unexplained weight loss. No weight gain. HEMATOLOGIC/LYMPHATIC: No anemia. No purpura. No petechiae. No prolonged or excessive bleeding. No palpable lymph nodes. PERSONAL/FAMILY/SOCIAL HISTORY: She lives with spouse. She does require some assists with ADL's. No alcohol or illicit drug use. MEDICATIONS: Xtampza 12.5mg PO BID Pantoprazole 40mg PO daily Ondansetron 4mg TID PRN Nortriptyline 10mg PO daily Gabapentin 100mg PO daily Symbicort 2 putts BID Singulair 10mg PO BEDTIME Telmisartan-hydrochlorothiazide 40-12.5mg one tablet PO daily Combivent 20-100mcg one puff inhalation QID Poly-Iron 150mg PO daily Trisha 180mg PO daily ALLERGIES: NSAIDS Latex Nabumetone Rofecoxib Sulfa PHYSICAL EXAMINATION: VITAL SIGNS: Temperature 97.3, heart rate 79, respiratory rate 16, blood pressure 155/85 and pulse ox 98% HEENT: Head normocephalic, atraumatic. Eyes: Extraocular muscles are intact. Pupils are equal, round and reactive to light and accommodation. Ears: No lesions. Nose appeared normal. Throat: No exudate or erythema. NECK: Supple. No JVD, no carotid bruit. No lymphadenopathy or thyromegaly. LUNGS: Diminished breath sounds. Clear to auscultation. Percussion note normal. Chest symmetrical. HEART: S1, S2, no S3. No murmur. No cyanosis or clubbing. No ascites. Pulses: Dorsalis pedis and posterior tibial pulses +1 to +2 bilaterally. ABDOMEN: Firmness. Nontender. Bowel sounds active. No CVA tenderness. No mass felt. EXTREMITIES: +2 left lower extremity edema. Full range of motion of all extremities, equal. NEUROLOGIC: No focal deficit. Cranial nerves II through XII are grossly intact. No headache, no double vision or headache. SKIN: Not dry. Intact. Turgor - normal. LYMPHATIC: No palpable lymph nodes/no lymphedema. MUSCULOSKELETAL: Normal joints with no swelling. Muscle tone is normal. LABS: CT of the abdomen and pelvis shows persistent constipation, large amount of stools seen throughout the colon. No bowel wall thickening. No definite bowel obstruction. CT of the brain shows no acute findings. Sodium 127, potassium 3.9, BUN 14, creatinine 0.86, AST 44, ALT 28, Lipase 267, Hgb 10.6, hct 31.8, WBC 5.2, plt count 291, urine normal, respiratory panel by PCR was negative. ASSESSMENT: 1. Acute constipation 2. Acute hyponatremia 3. Bilateral lower extremity edema left greater than right 4. Hypertension PLAN: 1. Routine telemetry 2. We will admit 3. CBC and CMP daily 4. Continue home medication 5. Venous scan of bilateral lower extremities 6. Normal saline IV at 75cc an hour 7. Start Amitiza twice a day 8. Constipation likely due to chronic opioid use. She has long acting opioid by Pain Management 9. Hold Hydrochlorothiazide 10.Chest x-ray 11.Elevate the legs Will follow closely. TIME SPENT: More than 70 minutes. MTDD
[2021-08-19] MEDS: SODIUM CHLORIDE 1,000 ML IV SCH (20:56)
[2021-08-19] MEDS: SINGULAIR PO SCH (20:57)
[2021-08-20] MEDS: SODIUM CHLORIDE 1,000 ML IV SCH (02:11)
[2021-08-20 05:13] LABS: BASOPHILS # (AUTO) 0.1 K/uL (0-0.2); BASOPHILS % (AUTO) 1.1 % (0.0-3.0); EOSINOPHILS # (AUTO) 0.1 K/ul (0.0-0.7); EOSINOPHILS % (AUTO) 2.7 % (0.0-7.0); HEMATOCRIT 27.8 % (37.0-47.0); HEMOGLOBIN 9.6 g/dl (12.0-16.0); IMMATURE GRANULOCYTE % (AUTO) 0.2 % (0.0-5.0); LYMPHOCYTES # (AUTO) 1.3 K/uL (0.60-3.4); MEAN CORPUSCULAR HEMOGLOBIN 31.2 pg (27.0-31.0); MEAN CORPUSCULAR HGB CONC 34.5 (31.8-35.4); MEAN CORPUSCULAR VOLUME 90.3 fl (81.0-99.0); MONOCYTES # (AUTO) 0.4 K/uL (0.4-2.0); MONOCYTES % (AUTO) 9.9 (0-10); NEUTROPHILS # (AUTO) 2.5 K/ul (2.0-6.9); NEUTROPHILS % (AUTO) 56.1 % (42.2-75.2); PLATELET COUNT 268 10^3/uL (140-440); RDW COEFFICIENT OF VARIATION 12.2 % (11.6-14.8); RED BLOOD COUNT 3.08 10^6/ul (4.20-5.40); WHITE BLOOD COUNT 4.44 K/ul (4.6-10.2)
[2021-08-20 05:35] LABS: ALANINE AMINOTRANSFERASE 26.7 U/L (0-35); ALBUMIN 3.44 g/dL (3.5-5.0); ASPARTATE AMINO TRANSFERASE 39.6 U/L (14-36); BILIRUBIN,TOTAL 0.29 mg/dL (0.2-1.3); BLOOD UREA NITROGEN 12.5 mg/dL (7-17); CALCIUM 7.76 mg/dL (8.4-10.2); CARBON DIOXIDE 27.5 mmol/L (22-30.0); CREATININE 0.68 mg/dL (0.60-1.30); GLUCOSE 93.8 mg/dL (74-106); POTASSIUM 3.56 mmol/L (3.5-5.1); SODIUM 124.6 mmol/L (134.5-145); TOTAL PROTEIN 6.07 g/dL (6.3-8.2)
[2021-08-20 05:36] VITALS: BP 174/95; TEMP 98
[2021-08-20] MEDS: CATAPRES PO PRN (05:44)
--- NOTE | 2021-08-20 08:59 | PCM.PROG ---
Attending Provider: ATTENDING PROVIDER: Dr. ANDERS LOPEZ This patient is seen with Jacqueline James, Nurse Practitioner. DATE OF SERVICE: 08/20/21 SUBJECTIVE: This 66 year old /WHITE F was hospitalized 08/18/21. The patient is resting comfortably. She had two large bowel movements yesterday after Fleets enema. Sodium is slightly better. Large amount of urine output. She would like to go home today. REVIEW OF SYSTEMS: CONSTITUTIONAL: No night sweats. No fatigue, malaise, lethargy. No fever or chills. HEENT: Eyes: No visual changes. No eye pain. No eye discharge. ENT: No runny nose. No epistaxis. No sinus pain. No odynophagia. No congestion. RESPIRATORY: No cough, no congestion. No hemoptysis. No shortness of breath. CARDIOVASCULAR: No angina symptoms. No CHF symptoms. No atypical chest pain for CAD. No palpitations. No orthopnea.. GASTROINTESTINAL: No abdominal pain. No nausea or vomiting. Constipation. No hematemesis. No hematochezia. GENITOURINARY: No urgency. No frequency. No dysuria. No hematuria. No obstructive symptoms. No discharge. No pain. No significant abnormal bleeding. MUSCULOSKELETAL: No musculoskeletal pain; no joint swelling. NEUROLOGICAL: Awake, alert, oriented to time, place and person. No headache. No neck pain. No syncope. No seizures. No dizziness. PSYCHIATRIC: Not anxious. No depression. No suicidal thoughts. No homicidal thoughts. SKIN: No rash. No lesions. No wounds. ENDOCRINE: No unexplained weight loss. No weight gain. HEMATOLOGIC/LYMPHATIC: No anemia. No purpura. No petechiae. No prolonged or excessive bleeding. No palpable lymph nodes. PHYSICAL EXAMINATION: GENERAL: The patient is awake, alert and oriented, lying in bed in no distress. VITAL SIGNS: Temperature 98.0 F, Pulse 82, Respiratory Rate 18, BP 174/95, Pulse Ox 99% HEENT: Head normocephalic, atraumatic. Eyes: Extraocular muscles are intact. Pupils are equal, round and reactive to light and accommodation. Ears: No lesi ons. Nose appeared normal. Throat: No exudate or erythema. NECK: Supple. No JVD, no carotid bruit. No lymphadenopathy or thyromegaly. LUNGS: Diminished breath sounds. Clear to auscultation. Percussion note normal. Chest symmetrical. HEART: S1, S2, no S3. No murmurs. No cyanosis or clubbing. No ascites. Pulses: Dorsalis pedis and posterior tibial pulses +1 to +2 both sides. ABDOMEN: Soft. Non-tender. Bowel sounds active. No CVA tenderness. No mass felt. EXTREMITIES: No edema. Full range of motion of all extremities, equal. NEUROLOGIC: No focal deficit. Cranial nerves II through XII are grossly intact. No headache. No double vision. SKIN: Not dry. Intact. Turgor-normal. LYMPHATIC: No palpable lymph nodes/no lymphedema. MUSCULOSKELETAL: Normal joints with no swelling. Muscle tone is normal. LAB REVIEW: 08/20/21 04:57 08/20/21 04:57 08/20/21 04:57: Sodium 124.6 L, Potassium 3.56, Chloride 92.0 L, Carbon Dioxide 27.5, Anion Gap 8.66, BUN 12.5, Creatinine 0.68, Estimated GFR (MDRD) 86.00, BUN/Creatinine Ratio 18.38, Glucose 93.8, Calcium 7.76 L, Total Bilirubin 0.29, AST 39.6 H, ALT 26.7, Alkaline Phosphatase 55.0, Total Protein 6.07 L, Albumin 3.44 L, Globulin 2.63, Albumin/Globulin Ratio 1.30 08/20/21 04:57: WBC 4.44 L, RBC 3.08 L, Hgb 9.6 L, Hct 27.8 L, MCV 90.3, MCH 31.2 H, MCHC 34.5, RDW Coeff of Olivia 12.2, Plt Count 268, Immature Gran % (Auto) 0.2, Neut % (Auto) 56.1, Lymph % (Auto) 30.0, [place] % (Auto) 9.9, Eos % (Auto) 2.7, Baso % (Auto) 1.1, Neut # (Auto) 2.5, Lymph # (Auto) 1.3, [place] # (Auto) 0.4, Eos # (Auto) 0.1, Baso # (Auto) 0.1, Immature Gran # (Auto) 0.0 ASSESSMENT: Please see below. 1. Constipation, improved 2. Chronic hyponatreamia 3. Chronic anemia 4. Leg edema, improved PLAN: 1. Discharge home 2. She will have one fleet enema prior to discharge 3. Instructed the patient to continue Amitiza twice daily Plan and coordination of the patient's care discussed in the presence of [employer] Web Developer and nurse. SCRIBED BY: Dwayne WYNNE scribed while in presence of service performed by Dr. Lopez/Jacqueline James APRN on 08/20/21 ([id number])
[2021-08-20] MEDS: XANAX PO SCH (09:32)
[2021-08-20] MEDS: AMITIZA PO SCH (09:32)
[2021-08-20] MEDS: NEURONTIN PO SCH (09:33)
[2021-08-20] MEDS: CLARITIN PO SCH (09:33)
[2021-08-20] MEDS: NIFEREX 150 PO SCH (09:33)
[2021-08-20] MEDS: MICARDIS PO SCH (09:34)
[2021-08-20] MEDS: PAMELOR PO SCH (09:34)
[2021-08-20] MEDS: COMBIVENT RESPIMAT INHALER IH SCH (09:35)
[2021-08-20] MEDS: SYMBICORT 80-4.5 MCG INHALER IH SCH (09:35)
[2021-08-20] MEDS: FLONASE NAS SCH (09:35)
[2021-08-20] MEDS: PROTONIX IV IVP SCH (10:02)
[2021-08-20] MEDS: [UNRECOGNIZED DRUG - REMARK] PO SCH (10:10)
--- NOTE | 2021-08-20 12:19 | CM.DICTOOL ---
ADMISSION: 08/18/21 19:50 DISCHARGE: AUGUST 20, 2021 DATE OF SERVICE: 08/20/21 FINAL DIAGNOSIS CONSTIPATION HYPONATREMIA BILATERAL LEG EDEMA HYPERTENSION ANXIETY ANEMIA CHRONIC PAIN WITH SENIOR LIVING OPOID USE (PAIN MANAGEMENT) SEVERE GENERALIZED OSTEOARTHRITIS OSTEOPENIA, HIPS (DEXA SCAN 08/12) SLEEP APNEA COPD ASTHMA SPINAL FUSION, L5-S1 TKR, LEFT SHOULDER REVISION, RIGHT FOOT SURGERY, RIGHT HYSTERECTOMY LAST VITALS Temp Pulse Resp BP Pulse Ox 98.0 F 82 18 174/95 H 98 08/20/21 05:34 08/20/21 05:34 08/20/21 05:34 08/20/21 05:34 08/20/21 10:00 TAKE THESE MEDICATIONS AT HOME Albuterol/Ipratropium (Ipratropium/Albuterol Sulfate Inhalation [place] Aer.W.Adap) 1 spray IH QID [facility] Last Admin: 08/20/21 09:35 Dose: 1 spray Documented by: Budesonide/Formoterol Fumarate (Budesonide/Formoterol Fumarate 80/4.5 Mcg Hfa.Aer.Ad) 2 puff IH BID [facility] Last Admin: 08/20/21 09:35 Dose: 2 puff Documented by: Clonidine (Clonidine Hcl 0.1 Mg Tablet) 0.1 mg PO DAILY PRN PRN Reason: Blood Pressure Last Admin: 08/20/21 05:44 Dose: 0.1 mg Documented by: Docusate Sodium (Docusate Sodium 100 Mg Capsule) 100 mg PO BID PRN (NEW RX) PRN Reason: Constipation Last Admin: 08/18/21 22:11 Dose: 100 mg Documented by: Fluticasone Propionate (Fluticasone Propionate 16 Gm Nasal [place]) 2 spray SHERRY DAILY [facility] Last Admin: 08/20/21 09:35 Dose: 2 spray Documented by: Gabapentin (Gabapentin 100 Mg Capsule) 100 mg PO DAILY [facility] Last Admin: 08/20/21 09:33 Dose: 100 mg Documented by: JESSIKA ALLERGY 180 mg PO DAILY [facility] Last Admin: Documented by: Lubiprostone (Lubiprostone 24 Mcg Capsule) 24 mcg PO BID MCKAYLA (NEW RX) Last Admin: 08/20/21 09:32 Dose: 24 mcg Documented by: Montelukast Sodium (Montelukast Sodium 10 Mg Tablet) 10 mg PO BEDTIME [facility] Last Admin: 08/19/21 20:57 Dose: 10 mg Documented by: Non-Formulary Medication (Oxycodone Myristate [Xtampza Er]) 13.5 mg PO BID [facility] Last Admin: 08/20/21 10:10 Dose: Not Given Documented by: Nortriptyline HCl (Nortriptyline Hcl 10 Mg Capsule) 10 mg PO DAILY [facility] Last Admin: 08/20/21 09:34 Dose: 10 mg Documented by: Ondansetron HCl (Ondansetron Hcl 4 Mg Tablet) 4 mg PO TID PRN PRN Reason: Nausea / Vomiting Pantoprazole Sodium 40 mg PO DAILY [facility] Last Admin: 08/20/21 10:02 Dose: 40 mg Documented by: Polysaccharide Iron Complex (Iron Polysaccharide Complex 150 Mg Capsule) 150 mg PO DAILY [facility] Last Admin: 08/20/21 09:33 Dose: 150 mg Documented by: Telmisartan /Hydrochlorothiazide 1 tablet PO DAILY [facility] Last Admin: 08/20/21 09:34 Dose: 1 DAILY Documented by: COREG 3.125 MG PO BID (CONTINUE THIS HOME MEDICATION) LAST ADMIN: ALLERGIES NSAIDS (Non-Steroidal Anti-Inflamma Adverse Reaction (Intermediate, Verified 08/18/21 16:05) SOA latex Adverse Reaction (Verified 08/18/21 16:05) Swelling nabumetone [From Relafen] Adverse Reaction (Verified 08/18/21 16:05) Unknown rofecoxib [From Vioxx] Adverse Reaction (Verified 08/18/21 16:05) unknown Sulfa (Sulfonamide Antibiotics) Adverse Reaction (Verified 08/18/21 16:05) Unknown DISCONTINUED MEDICATIONS NONE NEW PRESCRIPTIONS: AMITIZA 24 MCG PO BID COLACE 100 MG PO BID NEEDED FOR CONSTIPATION SMOKING: NOT APPLICABLE DISEASE SPECIFIC EDUCATION: ACTIVITY NEW MEDICATION; AMITIZA FOR CONSTIPATION AND IMPORTANCE OF TAKING REGULARLY APPOINTMENT LAB REVIEW: 08/20/21 04:57 08/20/21 04:57 08/20/21 04:57: Sodium 124.6 L, Potassium 3.56, Chloride 92.0 L, Carbon Dioxide 27.5, Anion Gap 8.66, BUN 12.5, Creatinine 0.68, Estimated GFR (MDRD) 86.00, BUN/Creatinine Ratio 18.38, Glucose 93.8, Calcium 7.76 L, Total Bilirubin 0.29, AST 39.6 H, ALT 26.7, Alkaline Phosphatase 55.0, Total Protein 6.07 L, Albumin 3.44 L, Globulin 2.63, Albumin/Globulin Ratio 1.30 08/20/21 04:57: WBC 4.44 L, RBC 3.08 L, Hgb 9.6 L, Hct 27.8 L, MCV 90.3, MCH 31.2 H, MCHC 34.5, RDW Coeff of [place] 12.2, Plt Count 268, Immature Gran % (Auto) 0.2, Neut % (Auto) 56.1, Lymph % (Auto) 30.0, [place] % (Auto) 9.9, Eos % (Auto) 2.7, Baso % (Auto) 1.1, Neut # (Auto) 2.5, Lymph # (Auto) 1.3, [place] # (Auto) 0.4, Eos # (Auto) 0.1, Baso # (Auto) 0.1, Immature Gran # (Auto) 0.0 PLAN: DISCHARGE HOME WITH SPOUSE DIET: REGULAR TOLERATED ACTIVITY: RESUME TOLERATED AMBULATION IS ENCOURAGED ELEVATE LEGS ABOVE LEVEL OF HIPS MUCH POSSIBLE WHEN SITTING AND AT NIGHT CONTINUE USE OF C-PAP AT NIGHT AN APPOINTMENT IS SCHEDULED WITH DR. LOPEZ/DIAMOND BAILEY APRN/KHOI REARDON APRN ON AUGUST 27, 2021 AT 1:15 PM CODE STATUS: FULL CODE MRS. REYES IS ALERT AND ORIENTED X 4. SHE IS ANXIOUS AND FORGETFUL AT TIMES. SHE LIVES AT HOME WITH HER , MODESTA. MRS. REYES HAS REPORTED SHE WOULD LIKE TO GO HOME TODAY. SHE AND HER ARE AGREEABLE WITH DISCHARGE PLANS. MRS. REYES IS INDEPENDENT WITH ACTIVITIES OF DAILY LIVING. AT TIMES, SHE UTILIZES A CANE FOR WALKING. HER GAIT IS STEADY, BUT SLOW AT TIMES DUE TO CHRONIC BACK PAIN AND HIP PAIN. SHE IS INDEPENDENT WITH TOILETING AND WEARS DEPENDS UNDERGARMENTS. SHE IS CONTINENT OF BOWEL AND BLADDER. SHE HAS HAD SEVERAL FLEETS ENEMAS DURING HER STAY. SHE IS PASSING SMALL TO MODERATE AMOUNTS OF FORMED STOOL. SHE IS INDEPENDENT WITH MEALS. HER APPETITE HAS BEEN GOOD AT 25-75%. MRS. REYES IS INDEPENDENT WITH DRESSING, BUT DOES HAVE DIFFICULTY WITH SOME TASKS DUE TO ARTHRITIS IN HANDS/FINGERS. HYDRATION STATUS IS GOOD. SKIN IS INTACT. MD DIAMOND JOLLY, BOOK SEWER
--- NOTE | 2021-08-21 13:37 | DS ---
DATE OF SERVICE: 08/20/2021 FINAL DIAGNOSIS: CONSTIPATION HYPONATREMIA BILATERAL LEG EDEMA HYPERTENSION ANXIETY ANEMIA CHRONIC PAIN WITH DRYING ROOM ATTENDANT OPIOID USE (PAIN MANAGEMENT) SEVERE GENERALIZED OSTEOARTHRITIS OSTEOPENIA, HIPS (DEXA SCAN 08/12) SLEEP APNEA COPD ASTHMA SPINAL FUSION, L5-S1 TKR, LEFT SHOULDER REVISION, RIGHT FOOT SURGERY, RIGHT HYSTERECTOMY LAST VITALS: Temp Pulse Resp BP Pulse Ox 98.0 F 82 18 174/95 H 98 08/20/21 05:34 08/20/21 05:34 08/20/21 05:34 08/20/21 05:34 08/20/21 10:00 DISCHARGE INSTRUCTIONS: DISCHARGE HOME WITH SPOUSE. CONTINUE USE OF C-PAP AT NIGHT. AN APPOINTMENT IS SCHEDULED WITH DR. LOPEZ/DIAMOND BAILEY APRN/KHOI REARDON APRN ON AUGUST 27, 2021 AT 1:15 PM. CODE STATUS: FULL CODE. TAKE THESE MEDICATIONS AT HOME: Albuterol/Ipratropium (Ipratropium/Albuterol Sulfate Inhalation [place] Aer.W.Adap) 1 spray IH QID [facility] Last Admin: 08/20/21 09:35 Dose: 1 spray Documented by: Budesonide/Formoterol Fumarate (Budesonide/Formoterol Fumarate 80/4.5 Mcg Hfa.Aer.Ad) 2 puff IH BID [facility] Last Admin: 08/20/21 09:35 Dose: 2 puff Documented by: Clonidine (Clonidine Hcl 0.1 Mg Tablet) 0.1 mg PO DAILY PRN PRN Reason: Blood Pressure Last Admin: 08/20/21 05:44 Dose: 0.1 mg Documented by: Docusate Sodium (Docusate Sodium 100 Mg Capsule) 100 mg PO BID PRN (NEW RX) PRN Reason: Constipation Last Admin: 08/18/21 22:11 Dose: 100 mg Documented by: Fluticasone Propionate (Fluticasone Propionate 16 Gm Nasal [place]) 2 spray SHERRY DAILY [facility] Last Admin: 08/20/21 09:35 Dose: 2 spray Documented by: Gabapentin (Gabapentin 100 Mg Capsule) 100 mg PO DAILY [facility] Last Admin: 08/20/21 09:33 Dose: 100 mg Documented by: JESSIKA ALLERGY 180 mg PO DAILY [facility] Last Admin: Documented by: Lubiprostone (Lubiprostone 24 Mcg Capsule) 24 mcg PO BID [facility] (NEW RX) Last Admin: 08/20/21 09:32 Dose: 24 mcg Documented by: Montelukast Sodium (Montelukast Sodium 10 Mg Tablet) 10 mg PO BEDTIME [facility] Last Admin: 08/19/21 20:57 Dose: 10 mg Documented by: Non-Formulary Medication (Oxycodone Myristate [Xtampza Er]) 13.5 mg PO BID [facility] Last Admin: 08/20/21 10:10 Dose: Not Given Documented by: Nortriptyline HCl (Nortriptyline Hcl 10 Mg Capsule) 10 mg PO DAILY [facility] Last Admin: 08/20/21 09:34 Dose: 10 mg Documented by: Ondansetron HCl (Ondansetron Hcl 4 Mg Tablet) 4 mg PO TID PRN PRN Reason: Nausea / Vomiting Pantoprazole Sodium 40 mg PO DAILY [facility] Last Admin: 08/20/21 10:02 Dose: 40 mg Documented by: Polysaccharide Iron Complex (Iron Polysaccharide Complex 150 Mg Capsule) 150 mg PO DAILY [facility] Last Admin: 08/20/21 09:33 Dose: 150 mg Documented by: Telmisartan /Hydrochlorothiazide 1 tablet PO DAILY [facility] Last Admin: 08/20/21 09:34 Dose: 1 DAILY Documented by: COREG 3.125 MG PO BID (CONTINUE THIS HOME MEDICATION) LAST ADMIN: ALLERGIES: NSAIDS (Non-Steroidal Anti-Inflammatory Adverse Reaction (Intermediate, Verified 08/18/21 16:05) SOA latex Adverse Reaction (Verified 08/18/21 16:05) Swelling nabumetone [From Relafen] Adverse Reaction (Verified 08/18/21 16:05) Unknown rofecoxib [From Vioxx] Adverse Reaction (Verified 08/18/21 16:05) unknown Sulfa (Sulfonamide Antibiotics) Adverse Reaction (Verified 08/18/21 16:05) Unknown DISCONTINUED MEDICATIONS: NONE NEW PRESCRIPTIONS: AMITIZA 24 MCG PO BID COLACE 100 MG PO BID NEEDED FOR CONSTIPATION SMOKING: NOT APPLICABLE DISEASE SPECIFIC EDUCATION: ACTIVITY NEW MEDICATION; AMITIZA FOR CONSTIPATION AND IMPORTANCE OF TAKING REGULARLY APPOINTMENT LAB REVIEW: 08/20/21 04:57 08/20/21 04:57 08/20/21 04:57: Sodium 124.6 L, Potassium 3.56, Chloride 92.0 L, Carbon Dioxide 27.5, Anion Gap 8.66, BUN 12.5, Creatinine 0.68, Estimated GFR (MDRD) 86.00, BUN/Creatinine Ratio 18.38, Glucose 93.8, Calcium 7.76 L, Total Bilirubin 0.29, AST 39.6 H, ALT 26.7, Alkaline Phosphatase 55.0, Total Protein 6.07 L, Albumin 3.44 L, Globulin 2.63, Albumin/Globulin Ratio 1.30 08/20/21 04:57: WBC 4.44 L, RBC 3.08 L, Hgb 9.6 L, Hct 27.8 L, MCV 90.3, MCH 31.2 H, MCHC 34.5, RDW Coeff of [place] 12.2, Plt Count 268, Immature Gran % (Auto) 0.2, Neut % (Auto) 56.1, Lymph % (Auto) 30.0, [place] % (Auto) 9.9, Eos % (Auto) 2.7, Baso % (Auto) 1.1, Neut # (Auto) 2.5, Lymph # (Auto) 1.3, [place] # (Auto) 0.4, Eos # (Auto) 0.1, Baso # (Auto) 0.1, Immature Gran # (Auto) 0.0 DIET: REGULAR TOLERATED ACTIVITY: RESUME TOLERATED AMBULATION IS ENCOURAGED ELEVATE LEGS ABOVE LEVEL OF HIPS MUCH POSSIBLE WHEN SITTING AND AT NIGHT HOSPITAL COURSE: This is a white female who presented to the emergency room with abdominal pain complaining of constipation. She had not a bowel movement in several days. She also had some leg edema. She was admitted. CT scan showed defused constipation throughout the colon. Venous scan was negative just dependent leg edema. She was given Lasix 20mg IV and had two liters or urinary output. She had initially had home tried mag citrate, prune juice and stool softeners with no avail. She had previously been hospitalized with similar symptoms. We had started on her Amitiza as she does take a long acting Opioid on a daily basis from [facility] and I had previously discussed with her that the constipation is likely due to snf use of this opioid and she needs to take some thing specifically for this on a regular basis. However she did not continue the Amitiza so this was restarted twice daily. She has received three fleets enemas and has had multiple bowel movements. I have discussed with her the importance of drinking plenty of water, keep her legs elevated, taking her medication regularly and continuing the Amitiza. We will discharge her in stable condition and followup up with her in the office. TIME SPENT: More than 60 minutes. JED
--- NOTE | 2021-08-22 12:42 | PN ---
DATE OF SERVICE: 08/18/2021 SUBJECTIVE: The patient was hospitalized through the emergency room with complaint of having severe constipation. The patient had CAT scan colon was full of feces. The patient also had bilateral leg edema and borderline low sodium of 127. The patient was hospitalized for further treatment. I talked to Dr. Pitt to give either Fleet enema or soap enema to get her constipation results with IV fluids normal saline at 75cc per hour. TIME SPENT: More than 30 minutes. Plan and coordination of the patient's care discussed in the presence of nurse. JED
--- NOTE | 2021-08-22 12:45 | PN ---
DATE OF SERVICE: 08/19/2021 SUBJECTIVE: The patient was seen and examined with the Nurse Practitioner. The patient's History and Physical was done and plan was carried out. The patient is getting Fleet enema. She is moving her bowels. Leg edema has practically resolved with IV Lasix 20mg and IV fluids. The patient's constipation is secondary to a narcotic she is taking as a pain mediation. Amitiza just stopped taking it on her own. is present in the room. Advised to take Amitiza regularly along with her narcotics for the pain. TIME SPENT: More than 30 minutes. Plan and coordination of the patient's care discussed in the presence of nurse. JED
--- NOTE | 2021-08-22 13:18 | PN ---
DATE OF SERVICE: 08/20/2021 SUBJECTIVE: The patient's condition has improved. The constipation seems to have resolved. She has passed a lot of stool. Amitiza would be given to her along with Miralax and stool softener to be taken with pain medications. TIME SPENT: More than 30 minutes. Plan and coordination of the patient's care discussed in the presence of nurse. JED
== END 2021-08-20 13:03 | disposition home or self-care (01) | DRG 392 ==
LOC: ED 15:49 → MEDSURG A 19:50
PROVIDERS: ADMIT Internal Medicine; ATTEND Internal Medicine
DX: Z20.822 Contact with and (suspected) exposure to COVID-19; M54.50 Low back pain, unspecified; R60.0 Localized edema; G47.33 Obstructive sleep apnea (adult) (pediatric); D64.9 Anemia, unspecified; K59.00 Constipation, unspecified; M85.89 Other specified disorders of bone density and structure, multiple sites; E87.1 Hypo-osmolality and hyponatremia; M19.90 Unspecified osteoarthritis, unspecified site

== ENCOUNTER 2022-02-25 17:18 | Inpatient (IN) ==
[2022-02-25 17:56] VITALS: BMI 19.7
[2022-02-25] MEDS ORDERED: NITROSTAT SL PRN (18:06)
[2022-02-25] MEDS ORDERED: TYLENOL PO PRN (18:06)
[2022-02-25] MEDS ORDERED: ATROPINE SULFATE PFS IVP PRN (18:06)
[2022-02-25] MEDS ORDERED: XANAX PO PRN (18:09)
[2022-02-25 18:40] LABS: BASOPHILS # (AUTO) 0.1 K/uL (0-0.2); BASOPHILS % (AUTO) 0.7 % (0.0-3.0); EOSINOPHILS # (AUTO) 0.1 K/ul (0.0-0.7); EOSINOPHILS % (AUTO) 1.7 % (0.0-7.0); HEMATOCRIT 26.3 % (37.0-47.0); HEMOGLOBIN 8.8 g/dl (12.0-16.0); IMMATURE GRANULOCYTE % (AUTO) 0.4 % (0.0-5.0); LYMPHOCYTES # (AUTO) 1.2 K/uL (0.60-3.4); LYMPHOCYTES % (AUTO) 16.5 (10.0-50.0); MEAN CORPUSCULAR HGB CONC 33.5 (31.8-35.4); MEAN CORPUSCULAR VOLUME 89.8 fl (81.0-99.0); MONOCYTES # (AUTO) 0.4 K/uL (0.4-2.0); MONOCYTES % (AUTO) 5.6 (0-10); NEUTROPHILS # (AUTO) 5.2 K/ul (2.0-6.9); NEUTROPHILS % (AUTO) 75.1 % (42.2-75.2); PLATELET COUNT 384 10^3/uL (140-440); RDW COEFFICIENT OF VARIATION 12.1 % (11.6-14.8); RED BLOOD COUNT 2.93 10^6/ul (4.20-5.40); WHITE BLOOD COUNT 6.98 K/ul (4.6-10.2)
--- NOTE | 2022-02-25 18:50 | DI ---
EXAM: Chest one view. HISTORY: Short of breath COMPARISON: 04/11/2021 chest x-ray FINDINGS: Heart and pulmonary vascularity within normal limits. The lungs are satisfactory inflated with no active pulmonary infiltrate seen. Chronic appearing increased interstitial lung markings. Granulomatous calcifications are seen. Unchanged right shoulder reverse shoulder arthroplasty IMPRESSION: Evidence of chronic lung findings with no active cardiac or pulmonary process seen.
[2022-02-25 18:51] LABS: ALANINE AMINOTRANSFERASE 27.1 U/L (0-35); ALBUMIN 3.87 g/dL (3.5-5.0); ALKALINE PHOSPHATASE 82.1 U/L (53-141); ASPARTATE AMINO TRANSFERASE 41.1 U/L (14-36); BILIRUBIN,TOTAL 0.42 mg/dL (0.2-1.3); BLOOD UREA NITROGEN 10.6 mg/dL (7-17); CALCIUM 8.29 mg/dL (8.4-10.2); CARBON DIOXIDE 32.8 mmol/L (22-30.0); CHLORIDE 84.4 mmol/L (98-107); CREATINE KINASE 208.7 U/L (30-135); CREATININE 0.86 mg/dL (0.60-1.30); GLUCOSE 119.1 mg/dL (74-106); POTASSIUM 3.57 mmol/L (3.5-5.1); SODIUM 122.9 mmol/L (134.5-145); TOTAL PROTEIN 6.48 g/dL (6.3-8.2)
[2022-02-25 19:03] LABS: TROPONIN I < 0.012 ng/ml (0.0000-0.120)
[2022-02-25] MEDS: ROCEPHIN 1 GM/50 ML D5W 1 GM/50 ML BAG IV SCH (19:07)
[2022-02-25] MEDS ORDERED: ZOFRAN TAB PO PRN (19:36)
[2022-02-25] MEDS ORDERED: CATAPRES PO PRN (19:38)
[2022-02-25] MEDS ORDERED: MUCINEX PO PRN (20:34)
[2022-02-25] MEDS ORDERED: MUCINEX PO SCH (21:00)
[2022-02-25] MEDS ORDERED: SINGULAIR PO SCH (21:00)
[2022-02-25 21:38] LABS: BILIRUBIN,URINE Negative (NEGATIVE); CLARITY,URINE Clear (CLEAR); COLOR,URINE Yellow (YELLOW); GLUCOSE, URINE (UA) Negative (NEGATIVE); KETONES,URINE Negative (NEGATIVE); LEUKOCYTE ESTERASE ,URINE Negative (NEGATIVE); NITRITE,URINE Negative (NEGATIVE); PROTEIN,URINE Negative (NEGATIVE); URINE, BLOOD Negative (NEGATIVE); UROBILINOGEN,URINE 0.2 (0.2)
[2022-02-25] MEDS: CALCIUM 500 + VIT D 5 MCG (200 IU) TABLET PO SCH (21:55)
[2022-02-25] MEDS: MICARDIS PO SCH (21:56)
[2022-02-25] MEDS: COMBIVENT RESPIMAT INHALER IH SCH (21:57)
[2022-02-25] MEDS: AMITIZA PO SCH (21:57)
[2022-02-25] MEDS: MIRALAX PO SCH (21:58)
[2022-02-25] MEDS: NORCO 10-325 PO SCH (21:59)
[2022-02-25] MEDS ORDERED: SODIUM CHLORIDE 1,000 ML IV SCH (22:30)
[2022-02-26] MEDS: PROTONIX IV IVP SCH ×2 (00:43→08:02)
[2022-02-26 02:05] LABS: BASOPHILS # (AUTO) 0.1 K/uL (0-0.2); BASOPHILS % (AUTO) 0.8 % (0.0-3.0); EOSINOPHILS # (AUTO) 0.1 K/ul (0.0-0.7); EOSINOPHILS % (AUTO) 1.3 % (0.0-7.0); HEMATOCRIT 27.6 % (37.0-47.0); HEMOGLOBIN 9.3 g/dl (12.0-16.0); IMMATURE GRANULOCYTE % (AUTO) 0.2 % (0.0-5.0); LYMPHOCYTES # (AUTO) 1.1 K/uL (0.60-3.4); LYMPHOCYTES % (AUTO) 17.7 (10.0-50.0); MEAN CORPUSCULAR HEMOGLOBIN 29.9 pg (27.0-31.0); MEAN CORPUSCULAR HGB CONC 33.7 (31.8-35.4); MEAN CORPUSCULAR VOLUME 88.7 fl (81.0-99.0); MONOCYTES # (AUTO) 0.5 K/uL (0.4-2.0); MONOCYTES % (AUTO) 8.7 (0-10); NEUTROPHILS # (AUTO) 4.3 K/ul (2.0-6.9); NEUTROPHILS % (AUTO) 71.3 % (42.2-75.2); PLATELET COUNT 315 10^3/uL (140-440); RDW COEFFICIENT OF VARIATION 12.5 % (11.6-14.8); RED BLOOD COUNT 3.11 10^6/ul (4.20-5.40); WHITE BLOOD COUNT 6.09 K/ul (4.6-10.2)
[2022-02-26 02:18] LABS: ALANINE AMINOTRANSFERASE 23.5 U/L (0-35); ALBUMIN 3.58 g/dL (3.5-5.0); ALKALINE PHOSPHATASE 73.9 U/L (53-141); ASPARTATE AMINO TRANSFERASE 35.5 U/L (14-36); BILIRUBIN,TOTAL 0.49 mg/dL (0.2-1.3); BLOOD UREA NITROGEN 10.9 mg/dL (7-17); CALCIUM 8.26 mg/dL (8.4-10.2); CARBON DIOXIDE 28.9 mmol/L (22-30.0); CHLORIDE 88.1 mmol/L (98-107); CREATINE KINASE 186.9 U/L (30-135); CREATININE 0.84 mg/dL (0.60-1.30); POTASSIUM 3.42 mmol/L (3.5-5.1); SODIUM 125.1 mmol/L (134.5-145); TOTAL PROTEIN 5.98 g/dL (6.3-8.2)
[2022-02-26 02:31] LABS: TROPONIN I < 0.012 ng/ml (0.0000-0.120)
[2022-02-26] MEDS: NORCO 10-325 PO SCH ×2 (05:11→12:42)
[2022-02-26 05:14] VITALS: BP 137/71; TEMP 97.8
[2022-02-26] MEDS ORDERED: PROTONIX PO SCH (06:30)
[2022-02-26] MEDS: ROCEPHIN 1 GM/50 ML D5W 1 GM/50 ML BAG IV SCH (08:02)
[2022-02-26] MEDS: COMBIVENT RESPIMAT INHALER IH SCH ×2 (08:02→12:44)
[2022-02-26] MEDS: CALCIUM 500 + VIT D 5 MCG (200 IU) TABLET PO SCH (08:46)
[2022-02-26] MEDS: MIRALAX PO SCH (08:46)
[2022-02-26] MEDS: MICARDIS PO SCH (08:46)
[2022-02-26] MEDS: AMITIZA PO SCH (08:46)
[2022-02-26] MEDS ORDERED: MICARDIS PO SCH (09:00)
[2022-02-26] MEDS ORDERED: PLAQUENIL PO SCH (09:00)
[2022-02-26] MEDS ORDERED: SYMBICORT 160-4.5 MCG INHALER IH SCH ×2 (09:00→21:00)
--- NOTE | 2022-02-26 12:56 | CT ---
EXAM: CT abdomen pelvis with intravenous contrast 02/26/2022. Sagittal and coronal reformatted imag es obtained HISTORY: Stomach pain COMPARISON: 02/24/2022 FINDINGS: The liver shows no acute abnormality. The gallbladder is mildly distend. The adrenal gla nds and kidneys show no acute abnormality there is no hydronephrosis. The spleen and pancreas show n o acute abnormality. There is no evidence of bowel obstruction. There is a large quantity of harden ed appearing stool throughout the colon suggesting constipation. Mucosal thickening of the sigmoid c olon may relate to colitis. This may be in part due to lack of distension. No acute osseous abnormality. Postoperative changes of the lumbosacral spine. IMPRESSION: 1. Large quantity of hardened appearing stool throughout the colon suggesting constipation. 2. Mucosal thickening of the sigmoid colon may represent infectious/inflammatory colitis. This may be in part due to lack of distension. 3. Mildly distended gallbladder. 4. Postoperative changes of the lumbosacral spine. All CT scans are performed using dose optimization techniques as appropriate to the performed exam an d include at least one of the following: Automated exposure control, adjustment of the mA and/or kV according t o size, and the use of iterative reconstruction technique.
[2022-02-26] MEDS ORDERED: K-DUR PO ONE (13:35)
--- NOTE | 2022-02-26 14:56 | HP ---
DATE OF SERVICE: 02/25/22 REASON FOR HOSPITALIZATION/HISTORY OF PRESENT ILLNESS: Hgb dropping. 9.0 02/20 and 7.9 yesterday. Weak and short of breath. PAST MEDICAL HISTORY/PAST SURGICAL HISTORY: Left shoulder osteoarthritis Leg swelling Left total knee replacement Rectocele Hypertension Chronic anemia COPD Asthma Family history CAD Cervical radiculopathy Lumbar radiculopathy Dyslipidemia Status post spinal Falling Left total knee replacement, [place] Chronic anemia REVIEW OF SYSTEMS: CONSTITUTIONAL: No fever, Fatigue. HEENT: No sinus drainage, no sore throat. RESPIRATORY: No cough, no congestion. CARDIOVASCULAR: No atypical chest pain for coronary artery disease. No angina, CHF symptoms, palpitations or shortness of breath. GASTROINTESTINAL: No melena or abdominal pain. No GERD. GENITOURINARY: No hematuria, no prostatism, no polyuria. CLINICAL SAFETY MANAGER: No blackout, no dizziness, no headache, no double vision. MUSCULOSKELETAL: No osteoarthritis pain, no joint swelling. ENDOCRINE: No weight loss, no weight gain. SKIN: Not dry, no rash. PSYCHIATRIC: Not anxious, no depression, no suicidal thoughts, no homicidal thoughts. SOCIAL HISTORY: Marital Status: . Alcohol Usage: No. Tobacco Usage: No. MEDICATIONS: Prolia Q 6 months Singulair 10mg daily Calcium with Vitamin D BID Combivent inhaler daily Symbicort inhaler daily Protonix 40mg daily Micardis 40-12..5mg daily NEB treatment PRn Clonidine 0.1mg PRN Mucinex BID PRN Coreg 3.125mg BID OxyContin 12 hourly Amitiza Zofran 4mg PRN ALLERGIES: Emycin Statins Levaquin Zocor Zetia Claritin Repath PHYSICAL EXAMINATION: V/S: Pulse 76, blood pressure 120/60, temperature 98.4, oxygen saturation 98%. GENERAL APPEARANCE: Oriented times three. HEENT: Normal. Pale. Short of breath. NECK: No JVP, no bruits. RESPIRATORY: Decreased breath sounds. CARDIOVASCULAR: S1, S2, no S3, no murmur. No cyanosis, clubbing. No ascites. GI/ABDOMEN: No tenderness. Bowel sounds are active. Firm. EXTREMITIES: Trace edema, pulses +1, equal. CLINICAL SAFETY MANAGER: Deep tendon reflexes, sensory, motor and gait all normal. RECTAL: Dr. Dillon 2014/PELVIC: Mammogram 02/20 [facility] Pt refused. Advised yearly. ASSESSMENT: 1. Symptomatic anemia 2. Severe constipation 3. Mild Ataxia 4. Left shoulder osteoarthritis 5. Leg swelling 6. Left total knee replacement 7. Rectocele 8. Hypertension 9. Chronic anemia 10.COPD 11.Asthma 12.Family history CAD 13.Cervical radiculopathy 14.Lumbar radiculopathy 15.Dyslipidemia 16.Status post spinal 17.Falling 18.Left total knee replacement, [place] 19.Chronic anemia PLAN: 1. The patient to be tested in Drive thru 2. Routine telemetry orders 3. CBC and CMP now and aily 4. Type cross december and given two units PRBCs 5. U/A 6. Stool for blood 7. Protonix 40mg IV Q [address] abdomen and pelvis with and without Thursday AM 1st thing 9. Pharmacy to dose Amitiza 10.Miralax 17gram PO TID 11.Continue home medications 12.Chest x-ray 13.Regular diet 14.CPAP at night 15.Patient up adlib 16. Anemia profile 17.Xanax 0.25mg TID PRN PO TIME SPENT: More than 70 minutes. MTDD
[2022-02-26] MEDS ORDERED: MILK OF MAGNESIA PO SCH (15:00)
[2022-02-26] MEDS ORDERED: K-DUR PO SCH (17:00)
--- NOTE | 2022-03-05 13:55 | DS ---
DATE OF SERVICE: 02/26/22 FINAL DIAGNOSIS: 1. Symptomatic anemia. 2. Severe constipation 3. Severe osteoarthritis 4. Bronchial asthma 5. Status post multiple back surgeries 6. 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 Hypertension 8. Severe dyslipidemia, declined any treatment for severe dyslipidemia DISCHARGE INSTRUCTIONS: Discharge home. Continue all the medications as she has been as before. The patient is followed by Pain Management. Instructed to come back in 5-7 days for followup. The patient has referred for EGD and Colonoscopy to Dr. Dillon who used to be her policy intern. The patient is referred to Dr. Downing from chronic anemia. The patient has declined any form of treatment for her severe dyslipidemia. MEDICATIONS AT DISCHARGE: Oxycodone capsule 12 hours along Xtampza ER 13.5mg twice a day, going to Dr. Palomino for that. the patient is followed by multiple orthopedic physicians. Pepcid 20mg twice a day Ferrous sulfate 325mg twice a day DIET INSTRUCTIONS: Continue regular diet. Eat small, frequent, high fiber meals. ACTIVITY: As tolerated with rest periods if needed. HOSPITAL COURSE: 66 year old white female hospitalized with symptomatic anemia. The patient's hgb has been constantly dropping from 12 to 7.9 in past couple of months. She is fatigued and tired. The patient reluctantly agreed to get hospitalized. CT scan of the abdomen done which was practically unremarkable for any findings. The CT scan showed severe constipation with hardened stool all over colon, problem for past couple of years. The patient's CT scan also showed mucosal thickening of the sigmoid colon which could represent infectious or inflammatory colitis, mildly distended gallbladder was noted. There is changes from the surgery on lumbosacral spine was noted. Quantity of hardened appearing stool throughout the colon suggesting constipation was noted. Explained about all these findings. She has taking Amitiza and Miralax. During the stay in the hospital the patient was given a couple of units of packed red cells. The patient's hgb went up to 9.3, hct 27. No evidence of active GI bleed. Her Hyponatremia is secondary to compulsive water drinking, supplements were given. The patient was put on Pepcid along with Protonix. Ferrous sulfate was given to her once a day. She going to see Dr. Downing and Dr. Dillon. CONDITION: Stable. TIME SPENT: More than 60 minutes. MTDD
--- NOTE | 2022-03-05 13:56 | PN ---
02/25/22: Level 5 02/26/22 D as in discharge MTDD
--- NOTE | 2022-03-05 14:35 | PN ---
DATE OF SERVICE: 02/26/22 SUBJECTIVE: 66 year old white female hospitalized with symptomatic anemia. The patient has been feeling fatigued and tired. The patient's hgb has been constantly dropping for last four weeks. The patient also has severe constipation. The patient has declined any EGD or colonoscopy or GI because of her GI problems, quite severe especially constipation and also at times stomach cramps. She says that she is unable to drink solution they given for cleaning her colon prior to colonoscopy. She usually throws up so she has declined to even go to Dr. Dillon. The patient has not consented. REVIEW OF SYSTEMS: CONSTITUTIONAL: No night sweats. Still tired and fatigued. Feeling somewhat better. HEENT: Eyes: No visual changes. No eye pain. No eye discharge. ENT: No runny nose. No epistaxis. No sinus pain. No sore throat. No odynophagia. No congestion. RESPIRATORY: No cough, no congestion. No hemoptysis. No shortness of breath. CARDIOVASCULAR: No angina symptoms. No CHF symptoms. No atypical chest pain for CAD. No palpitations. No PND. No orthopnea. GASTROINTESTINAL: No abdominal pain. No nausea or vomiting. No diarrhea or constipation. No hematemesis. No hematochezia. GENITOURINARY: No urgency. No frequency. No dysuria. No hematuria. No obstructive symptoms. No discharge. No pain. No significant abnormal bleeding. MUSCULOSKELETAL: No musculoskeletal pain; no joint swelling. NEUROLOGICAL: No headache. No neck pain. No syncope. No seizures. No dizziness. PSYCHIATRIC: Not anxious. No depression. No suicidal thoughts. No homicidal thoughts. SKIN: No rash. No lesions. No wounds. ENDOCRINE: No unexplained weight loss. No weight gain. HEMATOLOGIC/LYMPHATIC: No anemia. No purpura. No petechiae. No prolonged or excessive bleeding. No palpable lymph nodes. PHYSICAL EXAMINATION: VITAL SIGNS: Temperature 97.8, pulse 66, respiratory rate 20, blood pressure 130/70 and pulse ox 98%. HEENT: Head normocephalic, atraumatic. Eyes: Extraocular muscles are intact. Pupils are equal, round and reactive to light and accommodation. Ears: No lesions. Nose appeared normal. Throat: No exudate or erythema. NECK: Supple. No JVD, no carotid bruit. No lymphadenopathy or thyromegaly. LUNGS: Decreased breath sounds but clear to auscultation. Percussion note normal. Chest symmetrical. HEART: S1, S2, no S3. No murmurs. No cyanosis or clubbing. No ascites. Pulses: Dorsalis pedis and posterior tibial pulses +1 to +2 bilaterally. ABDOMEN: Soft. Nontender. Bowel sounds active. No CVA tenderness. No mass felt. EXTREMITIES: No edema. Full range of motion of all extremities, equal. NEUROLOGIC: No focal deficit. Cranial nerves II through XII are grossly intact. No headache. No double vision. SKIN: Not dry. Intact. Turgor - normal. pale. LYMPHATIC: No palpable lymph nodes/no lymphedema. MUSCULOSKELETAL: Normal joints with no swelling. Muscle tone is normal. LABS: Hgb 9.3, hct 27, WBC 6,000 normal differential, Potassium 3.4. ASSESSMENT: 1. Anemia symptomatic somewhat better hgb holding. No evidence of active GI bleed PLAN: 1. We will KCL 20meq before discharge. 2. Continue Protonix 3. Add Pepcid 20mg PO twice a day 4. Ferrous Sulfate 325mg twice a day 5. Advised to continue the same medications as before 6. The patient given Telfa bandage which is a bigger band aid. Also shown and given to the patient for bleeding from Varicose veins. TIME SPENT: More than 30 minutes. Plan and coordination of the patient's care discussed in the presence of nurse. JED
== END 2022-02-26 14:32 | disposition home or self-care (01) | DRG 812 ==
LOC: MEDSURG A 17:18
PROVIDERS: ADMIT Internal Medicine; ATTEND Internal Medicine

== ENCOUNTER 2022-05-26 11:30 | Inpatient (IN) ==
[2022-05-26 11:49] LABS: BORDETELLA PARAPERTUSSIS (PCR) NOT DETECTED (NOT DETECT); BORDETELLA PERTUSSIS (PCR) NOT DETECTED (NOT DETECT); CHLAMYDIA PNEUMONIAE (PCR) NOT DETECTED (NOT DETECT); CORONAVIRUS 229E (PCR) NOT DETECTED (NOT DETECT); CORONAVIRUS HKU1 (PCR) NOT DETECTED (NOT DETECT); CORONAVIRUS NL63 (PCR) NOT DETECTED (NOT DETECT); CORONAVIRUS OC43 (PCR) NOT DETECTED (NOT DETECT); HUMAN METAPNEUMOVIRUS (PCR) NOT DETECTED (NOT DETECT); HUMAN RHINOVIRUS/ENTEROV (PCR) NOT DETECTED (NOT DETECT); INFLUENZA B (PCR) NOT DETECTED (NOT DETECT); MYCOPLASMA PNEUMONIAE (PCR) NOT DETECTED (NOT DETECT); PARAINFLUENZA VIRUS 1 (PCR) NOT DETECTED (NOT DETECT); PARAINFLUENZA VIRUS 2 (PCR) NOT DETECTED (NOT DETECT); PARAINFLUENZA VIRUS 3 (PCR) NOT DETECTED (NOT DETECT); PARAINFLUENZA VIRUS 4 (PCR) NOT DETECTED (NOT DETECT); RESPIRATORY SYNCYTIAL V (PCR) NOT DETECTED (NOT DETECT); SARS_COV_2 (PCR) NOT DETECTED (NOT DETECT)
[2022-05-26 12:44] LABS: ADENOVIRUS (PCR) NOT DETECTED (NOT DETECT)
[2022-05-26] MEDS ORDERED: ALDACTONE PO STA (16:22)
[2022-05-26] MEDS ORDERED: ZAROXOLYN PO STA (16:22)
[2022-05-26] MEDS ORDERED: LASIX IVP STA (16:22)
[2022-05-26 16:35] VITALS: BMI 22.6
[2022-05-26] MEDS ORDERED: CATAPRES PO PRN (16:54)
[2022-05-26] MEDS ORDERED: ZOFRAN TAB PO PRN (16:54)
[2022-05-26] MEDS ORDERED: COLACE PO PRN (16:54)
[2022-05-26] MEDS ORDERED: COMBIVENT RESPIMAT INHALER IH SCH ×2 (17:00→20:00)
[2022-05-26] MEDS ORDERED: AMITIZA PO PRN (17:12)
[2022-05-26] MEDS ORDERED: CLARITIN PO PRN (17:12)
[2022-05-26] MEDS ORDERED: NITROSTAT SL PRN (17:15)
[2022-05-26] MEDS ORDERED: TYLENOL PO PRN (17:15)
[2022-05-26] MEDS ORDERED: ATROPINE SULFATE PFS IVP PRN (17:15)
[2022-05-26 17:46] LABS: BILIRUBIN,URINE Negative (NEGATIVE); CLARITY,URINE Clear (CLEAR); COLOR,URINE Yellow (YELLOW); GLUCOSE, URINE (UA) Negative (NEGATIVE); KETONES,URINE Negative (NEGATIVE); LEUKOCYTE ESTERASE ,URINE Negative (NEGATIVE); NITRITE,URINE Negative (NEGATIVE); PROTEIN,URINE Negative (NEGATIVE); URINE, BLOOD Negative (NEGATIVE); UROBILINOGEN,URINE 0.2 (0.2)
--- NOTE | 2022-05-26 17:49 | DI ---
EXAM: Chest one view EXAM: CHEST RADIOGRAPH (1 VIEW) TECHNIQUE: Frontal Chest Radiograph. HISTORY: Short of breath COMPARISON: 02/25/2022 FINDINGS: Lungs and Pleura: No focal consolidation. No pleural effusion. No pneumothorax. No pulmonary edema . Cardiomediastinum: Normal cardiomediastinal silhouette. aortic calcifications. Are present Bones/Soft Tissues: No acute osseous abnormality. No soft tissue abnormality. Cardiac monitoring le ads are present. IMPRESSION: No acute radiographic abnormality.
[2022-05-26 18:17] LABS: BASOPHILS # (AUTO) 0.1 K/uL (0-0.2); BASOPHILS % (AUTO) 1.2 % (0.0-3.0); EOSINOPHILS # (AUTO) 0.2 K/ul (0.0-0.7); EOSINOPHILS % (AUTO) 2.2 % (0.0-7.0); HEMATOCRIT 37.1 % (37.0-47.0); HEMOGLOBIN 12.1 g/dl (12.0-16.0); IMMATURE GRANULOCYTE % (AUTO) 0.3 % (0.0-5.0); LYMPHOCYTES # (AUTO) 1.1 K/uL (0.60-3.4); LYMPHOCYTES % (AUTO) 14.3 (10.0-50.0); MEAN CORPUSCULAR HEMOGLOBIN 30.9 pg (27.0-31.0); MEAN CORPUSCULAR HGB CONC 32.6 (31.8-35.4); MEAN CORPUSCULAR VOLUME 94.6 fl (81.0-99.0); MONOCYTES # (AUTO) 0.4 K/uL (0.4-2.0); NEUTROPHILS # (AUTO) 5.9 K/ul (2.0-6.9); PLATELET COUNT 325 10^3/uL (140-440); RED BLOOD COUNT 3.92 10^6/ul (4.20-5.40)
[2022-05-26 18:30] LABS: ALANINE AMINOTRANSFERASE 30.3 U/L (0-35); ALBUMIN 4.55 g/dL (3.5-5.0); ALKALINE PHOSPHATASE 82.3 U/L (53-141); BILIRUBIN,TOTAL 0.25 mg/dL (0.2-1.3); BLOOD UREA NITROGEN 24.3 mg/dL (7-17); CALCIUM 8.95 mg/dL (8.4-10.2); CARBON DIOXIDE 33.9 mmol/L (22-30.0); CREATINE KINASE 143.6 U/L (30-135); CREATININE 0.97 mg/dL (0.60-1.30); GLUCOSE 114.1 mg/dL (74-106); POTASSIUM 3.99 mmol/L (3.5-5.1); SODIUM 132.2 mmol/L (134.5-145)
[2022-05-26] MEDS: NORCO 10-325 PO PRN (18:44)
[2022-05-26 18:47] LABS: TROPONIN I < 0.012 ng/ml (0.0000-0.120)
[2022-05-26] MEDS: SYMBICORT 80-4.5 MCG INHALER IH SCH (20:33)
[2022-05-26] MEDS: COMBIVENT RESPIMAT INHALER IH SCH (20:34)
[2022-05-26] MEDS: SINGULAIR PO SCH (20:34)
[2022-05-26] MEDS: PEPCID PO SCH (20:35)
[2022-05-26] MEDS: FERROUS SULFATE PO SCH (20:35)
[2022-05-26] MEDS: COREG PO SCH (20:35)
[2022-05-26] MEDS ORDERED: NON-FORMULARY MEDICATION (Ferrous Sulfate 325 mg (65 mg iron) Tablet) PO SCH (21:00)
[2022-05-26] MEDS ORDERED: [UNRECOGNIZED DRUG - REMARK] PO SCH (21:00)
[2022-05-27 01:22] LABS: BASOPHILS # (AUTO) 0.1 K/uL (0-0.2); BASOPHILS % (AUTO) 1.2 % (0.0-3.0); EOSINOPHILS # (AUTO) 0.3 K/ul (0.0-0.7); EOSINOPHILS % (AUTO) 4.3 % (0.0-7.0); HEMATOCRIT 31.9 % (37.0-47.0); HEMOGLOBIN 10.7 g/dl (12.0-16.0); IMMATURE GRANULOCYTE % (AUTO) 0.3 % (0.0-5.0); LYMPHOCYTES # (AUTO) 1.2 K/uL (0.60-3.4); LYMPHOCYTES % (AUTO) 19.9 (10.0-50.0); MEAN CORPUSCULAR HEMOGLOBIN 31.2 pg (27.0-31.0); MEAN CORPUSCULAR HGB CONC 33.5 (31.8-35.4); MONOCYTES # (AUTO) 0.4 K/uL (0.4-2.0); MONOCYTES % (AUTO) 6.1 (0-10); NEUTROPHILS # (AUTO) 3.9 K/ul (2.0-6.9); NEUTROPHILS % (AUTO) 68.2 % (42.2-75.2); PLATELET COUNT 279 10^3/uL (140-440); RDW COEFFICIENT OF VARIATION 14.8 % (11.6-14.8); RED BLOOD COUNT 3.43 10^6/ul (4.20-5.40); WHITE BLOOD COUNT 5.78 K/ul (4.6-10.2)
[2022-05-27 01:31] LABS: CREATINE KINASE 110.6 U/L (30-135)
[2022-05-27 01:45] LABS: TROPONIN I < 0.012 ng/ml (0.0000-0.120)
[2022-05-27 01:50] LABS: ALBUMIN 3.71 g/dL (3.5-5.0); ALKALINE PHOSPHATASE 71.7 U/L (53-141); ASPARTATE AMINO TRANSFERASE 27.4 U/L (14-36); BILIRUBIN,TOTAL 0.24 mg/dL (0.2-1.3); BLOOD UREA NITROGEN 24.9 mg/dL (7-17); CALCIUM 8.65 mg/dL (8.4-10.2); CARBON DIOXIDE 31.3 mmol/L (22-30.0); CHLORIDE 89.3 mmol/L (98-107); CREATININE 0.98 mg/dL (0.60-1.30); GLUCOSE 140.8 mg/dL (74-106); POTASSIUM 3.87 mmol/L (3.5-5.1); SODIUM 128.4 mmol/L (134.5-145); TOTAL PROTEIN 6.18 g/dL (6.3-8.2)
[2022-05-27] MEDS: PROTONIX PO SCH (05:34)
[2022-05-27] MEDS: PEPCID PO SCH ×2 (05:34→16:35)
[2022-05-27] MEDS: LASIX IVP SCH (05:35)
[2022-05-27] MEDS ORDERED: DECADRON IM ONE (08:46)
[2022-05-27] MEDS ORDERED: [UNRECOGNIZED DRUG - REMARK] PO SCH (09:00)
[2022-05-27] MEDS ORDERED: AMITIZA PO SCH (09:00)
[2022-05-27] MEDS: ZAROXOLYN PO SCH (09:21)
[2022-05-27] MEDS: FERROUS SULFATE PO SCH ×2 (09:21→20:59)
[2022-05-27] MEDS: MICRO-K CAP PO SCH (09:22)
[2022-05-27] MEDS: MICARDIS PO SCH (09:22)
[2022-05-27] MEDS: ALDACTONE PO SCH ×2 (09:22→20:59)
[2022-05-27] MEDS: COREG PO SCH ×2 (09:22→16:35)
[2022-05-27] MEDS: PLAQUENIL PO SCH (09:23)
[2022-05-27] MEDS: NIFEREX 150 PO SCH (09:23)
[2022-05-27] MEDS: COMBIVENT RESPIMAT INHALER IH SCH ×4 (09:34→21:00)
[2022-05-27] MEDS: SYMBICORT 80-4.5 MCG INHALER IH SCH ×2 (09:34→21:00)
--- NOTE | 2022-05-27 09:35 | PCM.PROG ---
Attending Provider: ATTENDING PROVIDER: Dr. ANDERS LOPEZ This patient is seen with Jacqueline James, Nurse Practitioner. DATE OF SERVICE: 05/27/22 SUBJECTIVE: This 67 year old /WHITE F was hospitalized 05/26/22. Down two pounds this morning, Significant urine output. The patient is requesting to go home. She has a long history of noncompliance. Labs are stable. REVIEW OF SYSTEMS: CONSTITUTIONAL: No night sweats. No fatigue, malaise, lethargy. No fever or chills. Weakness. HEENT: Eyes: No visual changes. No eye pain. No eye discharge. ENT: No runny nose. No epistaxis. No sinus pain. No odynophagia. No congestion. RESPIRATORY: No cough, no congestion. No hemoptysis. No shortness of breath. CARDIOVASCULAR: No angina symptoms. No CHF symptoms. No atypical chest pain for CAD. No palpitations. No orthopnea.. GASTROINTESTINAL: No abdominal pain. No nausea or vomiting. No diarrhea or constipation. No hematemesis. No hematochezia. GENITOURINARY: No urgency. No frequency. No dysuria. No hematuria. No obstructive symptoms. No discharge. No pain. No significant abnormal bleeding. MUSCULOSKELETAL: No musculoskeletal pain; no joint swelling. Left shoulder pain. NEUROLOGICAL: Awake, alert, oriented to time, place and person. No headache. No neck pain. No syncope. No seizures. No dizziness. PSYCHIATRIC: Not anxious. No depression. No suicidal thoughts. No homicidal thoughts. SKIN: No rash. No lesions. No wounds.Leg edema. ENDOCRINE: No unexplained weight loss. No weight gain. HEMATOLOGIC/LYMPHATIC: No anemia. No purpura. No petechiae. No prolonged or excessive bleeding. No palpable lymph nodes. PHYSICAL EXAMINATION: GENERAL: The patient is awake, alert and oriented, sitting in bed in no distress. VITAL SIGNS: Temperature 97.4 F, Pulse 88, Respiratory Rate 18, BP 128/74, Pulse Ox 97% HEENT: Head normocephalic, atraumatic. Eyes: Extraocular muscles are intact. Pupils are equal, round and reactive to light and accommodation. Ears: No lesions. Nose appeared normal. Throat: No exudate or erythema. NECK: Supple. No JVD, no carotid bruit. No lymphadenopathy or thyromegaly. LUNGS: Clear to auscultation. Percussion note normal. Chest symmetrical. HEART: S1, S2, no S3. No murmurs. No cyanosis or clubbing. No ascites. Pulses: Dorsalis pedis and posterior tibial pulses +1 to +2 both sides. ABDOMEN: Soft. Non-tender. Bowel sounds active. No CVA tenderness. No mass felt. EXTREMITIES: 3+ left lower extremity and 2+ right lower extremity edema. Full range of motion of all extremities, equal. NEUROLOGIC: No focal deficit. Cranial nerves II through XII are grossly intact. No headache. No double vision. SKIN: Not dry. Intact. Turgor-normal. LYMPHATIC: No palpable lymph nodes/no lymphedema. MUSCULOSKELETAL: Normal joints with no swelling. Muscle tone is normal. LAB REVIEW: 05/27/22 01:15 05/27/22 01:15 05/27/22 01:15: Sodium 128.4 L, Potassium 3.87, Chloride 89.3 L, Carbon Dioxide 31.3 H, Anion Gap 11.67, BUN 24.9 H, Creatinine 0.98, Estimated GFR (MDRD) 56.00, BUN/Creatinine Ratio 25.40, Glucose 140.8 H, Calcium 8.65, Total Bilirubin 0.24, AST 27.4, ALT 24.0, Alkaline Phosphatase 71.7, Total Protein 6.18 L, Albumin 3.71, Globulin 2.47, Albumin/Globulin Ratio 1.50 05/27/22 01:15: WBC 5.78, RBC 3.43 L, Hgb 10.7 L, Hct 31.9 L, MCV 93.0, MCH 31.2 H, MCHC 33.5, RDW Coeff of [place] 14.8, Plt Count 279, Immature Gran % (Auto) 0.3, Neut % (Auto) 68.2, Lymph % (Auto) 19.9, [place] % (Auto) 6.1, Eos % (Auto) 4.3, Baso % (Auto) 1.2, Neut # (Auto) 3.9, Lymph # (Auto) 1.2, [place] # (Auto) 0.4, Eos # (Auto) 0.3, Baso # (Auto) 0.1, Immature Gran # (Auto) 0.0 05/27/22 01:15: Total Creatine Kinase 110.6, Troponin I < 0.012 05/26/22 18:11: Free T4 0.99 05/26/22 18:11: WBC 7.60, RBC 3.92 L, Hgb 12.1, Hct 37.1, MCV 94.6, MCH 30.9, MCHC 32.6, RDW Coeff of [place] 15.0 H, Plt Count 325, Immature Gran % (Auto) 0.3, Neut % (Auto) 77.0 H, Lymph % (Auto) 14.3, [place] % (Auto) 5.0, Eos % (Auto) 2.2, Baso % (Auto) 1.2, Neut # (Auto) 5.9, Lymph # (Auto) 1.1, [place] # (Auto) 0.4, Eos # (Auto) 0.2, Baso # (Auto) 0.1, Immature Gran # (Auto) 0.0 05/26/22 18:11: Sodium 132.2 L, Potassium 3.99, Chloride 89.0 L, Carbon Dioxide 33.9 H, Anion Gap 13.29, BUN 24.3 H, Creatinine 0.97, Estimated GFR (MDRD) 57.0 0, BUN/Creatinine Ratio 25.05, Glucose 114.1 H, Calcium 8.95, Total Bilirubin 0.25, AST 32.0, ALT 30.3, Alkaline Phosphatase 82.3, Total Creatine Kinase 143.6 H, CK-MB (CK-2) 4.230 H, CK-MB (CK-2) % 2.9400, Troponin I < 0.012, Total Protein 8.00, Albumin 4.55, Globulin 3.45, Albumin/Globulin Ratio 1.31, TSH 2.500 05/26/22 17:17: Urine Color Yellow, Urine Clarity Clear, Urine pH 7.0, Ur Specific [place] 1.020, Urine Protein Negative, Urine Glucose (UA) Negative, Urine Ketones Negative, Urine Blood Negative, Urine Nitrite Negative, Urine Bilirubin Negative, Urine Urobilinogen 0.2, Ur Leukocyte Esterase Negative 05/26/22 11:45: Adenovirus (PCR) Not detected, B. pertussis DNA (PCR) Not detected, B.parapertussis DNA PCR Not detected, C. pneumoniae DNA (PCR) Not detected, Coronavirus OC43 (PCR) Not detected, Coronavirus HKU1 (PCR) Not detected, Coronavirus 229E (PCR) Not detected, Coronavirus NL63 (PCR) Not detected, Human Metapneumovir PCR Not detected, Influenza Type A (PCR) Not detected, Influenza B (RT-PCR) Not detected, M. pneumoniae (PCR) Not detected, Parainfluenza 1 (PCR) Not detected, Parainfluenza 2 (PCR) Not detected, Parainfluenza 3 (PCR) Not detected, Parainfluenza 4 (PCR) Not detected, RSV (PCR) Not detected, Entero/Rhino (PCR) Not detected, SARS-CoV-2 (PCR) Not detected ASSESSMENT: Please see below. 1. Bilateral leg edema 2. Hyponatremia PLAN: 1. Continue IV Lasix 2. Elevate legs Plan and coordination of the patient's care discussed in the presence of Supervisor [employer] and nurse. SCRIBED BY: Reilly WYNNEist scribed while in presence of service performed by Dr. Lopez/Jacqueline James APRN on 05/27/22 ([id number])
--- NOTE | 2022-05-27 11:39 | HP ---
DATE OF SERVICE: 05/26/22 REASON FOR HOSPITALIZATION/HISTORY OF PRESENT ILLNESS: One pound gained in 18 days. 4+ leg edema greater than 3 months . Short of breath on exertion. No symptoms of CHF/CAD or COVID 19. Gained 13 pounds in 2 months. PAST MEDICAL HISTORY: Anemia Ataxia Hypertension COPD-asthma Cervical radiculopathy Dyslipidemia Sleep apnea, CPAP PAST SURGICAL HISTORY: Left total knee replacement Status post spinal fusion REVIEW OF SYSTEMS: CONSTITUTIONAL: No fever, Fatigue. HEENT: No sinus drainage, no sore throat. RESPIRATORY: No cough, no congestion. CARDIOVASCULAR: No atypical chest pain for coronary artery disease. No angina, CHF symptoms, palpitations. Shortness of breath. GASTROINTESTINAL: No melena or abdominal pain. No GERD. GENITOURINARY: No hematuria, no prostatism, no polyuria. DISTANCE EDUCATION TEACHER: No blackout, no dizziness, no headache, no double vision. MUSCULOSKELETAL: Osteoarthritis pain, no joint swelling. ENDOCRINE: No weight loss, Weight gain. SKIN: Not dry, no rash. PSYCHIATRIC: Not anxious, no depression, no suicidal thoughts, no homicidal thoughts. SOCIAL HISTORY: Marital Status: . Lives with . Alcohol Usage: No. Tobacco Usage: No. FAMILY HISTORY: Father Mother MEDICATIONS: Pepcid 20mg BID Ferrous sulfate 325mg BID Symbicort two puffs BID Coreg 3.125mg PO BID Clonidine 0.1mg PO blood pressure over 150 Combivent one puff QID Colace 100mg BID Trisha 180mg Po daily Amitiza 24mcg BID Singulair 10mg daily Ondansetron 4mg TID Protonix 40mg daily Poly Iron 150mg Micardis 40mg Po daily Telmisartan-HCTZ Xtampza 13.5mg PO BID Zaroxolyn 2.5mg PO daily Lasix 20mg PO daily K-tab 10mew PO daily Plaquenil 200mg Extensa OxyContin ALLERGIES: Coreg-shortness of breath Emycin Statins Zocor Levaquin Zetia Claritin Repatha PHYSICAL EXAMINATION: V/S: Pulse 77, blood pressure 130/62, temperature 97.3, oxygen saturation 98% GENERAL APPEARANCE: Oriented times three. HEENT: Normal. NECK: No JVP, no bruits. RESPIRATORY: Lungs are clear. CARDIOVASCULAR: S1, S2, no S3, no murmur. No cyanosis, clubbing. No ascites. GI/ABDOMEN: No tenderness. Bowel sounds are active. EXTREMITIES: 4+ pitting edema, pulses +1, equal. DISTANCE EDUCATION TEACHER: Deep tendon reflexes, sensory, motor and gait all normal. RECTAL: Appointment 04/02/22 Scheduled for colonoscopy 06/20/22/PELVIC: 12/15 [facility] Mammogram refused repeat. ASSESSMENT: 1. Leg edema +4 pitting 2. Shortness of breath /Fluid overload 3. Anemia 4. Mild ataxia 5. Left shoulder Osteoarthritis 6. Left total knee replacement 7. Rectocele 8. Hypertension 9. COPD 10.Asthma 11.Family history of CAD 12. Obstructive sleep apnea, CPAP 13. Cervical radiculopathy 14. Lumbar radiculopathy 15. Dyslipidemia 16. Status post spinal fusion 17. Left total knee replacement -[place] 18. Chronic constipation 19. Noncompliant with medications, lifestyle and recommendations. PLAN: 1. Admit 2. Routine telemetry orders 3. IV Lasix 40mg SAMI and QAM daily 4. Aldactone 25mg PO BID one now 5. Zaroxolyn 2.5mg PO now and QAM 6. Elevate legs 7. I&O 8. T4, TSH 9. Continue all home medications 10.Discontinue PO Lasix TIME SPENT: More than 70 minutes. MTDD
[2022-05-27] MEDS: NORCO 10-325 PO PRN ×2 (12:05→22:10)
[2022-05-27] MEDS ORDERED: LASIX IVP ONE (16:00)
[2022-05-27] MEDS: OXYCODONE MYRISTATE 18 MG PO SCH (16:43)
[2022-05-27] MEDS: SINGULAIR PO SCH (20:59)
[2022-05-27] MEDS ORDERED: VISTARIL INJ IM PRN (22:16)
[2022-05-27] MEDS ORDERED: ATIVAN IM ONE (22:26)
[2022-05-28 05:27] LABS: BASOPHILS # (AUTO) 0.1 K/uL (0-0.2); BASOPHILS % (AUTO) 0.7 % (0.0-3.0); EOSINOPHILS # (AUTO) 0.1 K/ul (0.0-0.7); HEMATOCRIT 35.7 % (37.0-47.0); HEMOGLOBIN 11.6 g/dl (12.0-16.0); IMMATURE GRANULOCYTE % (AUTO) 0.3 % (0.0-5.0); LYMPHOCYTES # (AUTO) 1.3 K/uL (0.60-3.4); LYMPHOCYTES % (AUTO) 18.6 (10.0-50.0); MEAN CORPUSCULAR HEMOGLOBIN 30.4 pg (27.0-31.0); MEAN CORPUSCULAR HGB CONC 32.5 (31.8-35.4); MEAN CORPUSCULAR VOLUME 93.7 fl (81.0-99.0); MONOCYTES # (AUTO) 0.5 K/uL (0.4-2.0); MONOCYTES % (AUTO) 7.3 (0-10); NEUTROPHILS % (AUTO) 71.1 % (42.2-75.2); PLATELET COUNT 352 10^3/uL (140-440); RDW COEFFICIENT OF VARIATION 14.7 % (11.6-14.8); RED BLOOD COUNT 3.81 10^6/ul (4.20-5.40); WHITE BLOOD COUNT 7.09 K/ul (4.6-10.2)
[2022-05-28 05:42] LABS: ALANINE AMINOTRANSFERASE 25.2 U/L (0-35); ALBUMIN 4.19 g/dL (3.5-5.0); ALKALINE PHOSPHATASE 77.4 U/L (53-141); ASPARTATE AMINO TRANSFERASE 29.2 U/L (14-36); BILIRUBIN,TOTAL 0.28 mg/dL (0.2-1.3); BLOOD UREA NITROGEN 32.9 mg/dL (7-17); CALCIUM 8.46 mg/dL (8.4-10.2); CARBON DIOXIDE 35.9 mmol/L (22-30.0); CREATININE 1.25 mg/dL (0.60-1.30); GLUCOSE 110.4 mg/dL (74-106); POTASSIUM 3.62 mmol/L (3.5-5.1); SODIUM 127.9 mmol/L (134.5-145); TOTAL PROTEIN 7.22 g/dL (6.3-8.2)
[2022-05-28] MEDS: PROTONIX PO SCH (05:56)
[2022-05-28] MEDS: PEPCID PO SCH (05:56)
[2022-05-28] MEDS: OXYCODONE MYRISTATE 18 MG PO SCH (05:56)
[2022-05-28] MEDS: LASIX IVP SCH (06:24)
[2022-05-28] MEDS: PLAQUENIL PO SCH (09:51)
[2022-05-28] MEDS: MICARDIS PO SCH (09:52)
[2022-05-28] MEDS: ZAROXOLYN PO SCH (09:52)
[2022-05-28] MEDS: ALDACTONE PO SCH (09:52)
[2022-05-28] MEDS: MICRO-K CAP PO SCH (09:52)
[2022-05-28] MEDS: FERROUS SULFATE PO SCH (09:52)
[2022-05-28] MEDS: NIFEREX 150 PO SCH (09:52)
[2022-05-28] MEDS: COREG PO SCH (09:53)
[2022-05-28] MEDS: SYMBICORT 80-4.5 MCG INHALER IH SCH (09:55)
[2022-05-28] MEDS: COMBIVENT RESPIMAT INHALER IH SCH ×2 (09:56→13:12)
[2022-05-28] MEDS ORDERED: ATIVAN IM PRN (12:49)
[2022-05-28 14:36] VITALS: BP 91/57; TEMP 97.1
--- NOTE | 2022-05-28 16:39 | US ---
EXAM: BILATERAL LOWER EXTREMITY VASCULAR ULTRASOUND WITH DOPPLER IMAGING HISTORY: Bilateral leg pain. Claudication that interferes significantly with the patient's lifestyle . TECHNIQUE: Whitman-scale with color Doppler and spectral Doppler was performed of the bilateral lower ex tremity arteries. Images were obtained and stored in a permanent archive. COMPARISON: None. FINDINGS: RIGHT LOWER EXTREMITY: Common femoral artery: Normal triphasic waveform. PSV: 186 cm/s. Superficial femoral artery: - Proximal: Normal triphasic waveform. PSV: 122 cm/s. - Distal: Normal triphasic waveform. PSV: 92 cm/s. Popliteal artery: Normal triphasic waveform. PSV: 82 cm/s. Dorsalis pedis artery: Normal triphasic waveform. PSV: 67 cm/s. Posterior tibial artery: Normal triphasic waveform. PSV: 55 cm/s. Other: Subcutaneous adipose tissue edema in the lower leg. LEFT LOWER EXTREMITY: Common femoral artery: Normal triphasic waveform. PSV: 106 cm/s. Superficial femoral artery: - Proximal: Normal triphasic waveform. PSV: 139 cm/s. - Distal: Normal triphasic waveform. PSV: 122 cm/s. Popliteal artery: Normal triphasic waveform. PSV: 115 cm/s. Dorsalis pedis artery: Biphasic waveform. PSV: 90 cm/s. Posterior tibial artery: Monophasic waveform. PSV: 50 cm/s. Other: Subcutaneous adipose tissue edema in the lower leg. IMPRESSION: 1. On the right side, there is no significant stenosis. 2. On the left side, the femoral and popliteal systems are normal. The calf arteries demonstrate ab normal biphasic or monophasic flow which may indicate significant stenosis. 3. Subcutaneous adipose tissue edema in the lower legs.
--- NOTE | 2022-05-29 08:59 | ECHO2D ---
Date of Exam: 05/28/2022 Ordering Physician: DR. ANDERS LOPEZ Room #: [id number] Reason for Echo: SOB, HTN, 4+ PITTING EDEMA M-Mode Normal Adult Results LV Dimensions Normal Adult Results AoV Opening excursions >1.6 >1.6 LVEDD-base- 3.5-5.8 4.0 Ao root dimensions 2.0-3.7 3.6 LVESD-base- 3.1-4.6 L. Atrium dimensions 1.9-3.8 3.8 Post. Wall thickness 0.8-1.1 1.1 IV septum (thickness) 0.7-1.2 1.1 Post. Wall excursion 0.72-1.3 NORMAL Septal motion NORMAL Systolic motion R. Ventricular cavity 1.5-2.0 4.4 LVEF 60% 54% Paradoxical septal wall motion NORMAL 2-D : 2-D M Mode Echocardiogram was performed using apical four chamber and left parasternal long and short axis views. Mitral, tricuspid and aortic valves appear to be normal. Contractility of the left ventricle seems to be normal, so is the cavity size. Left atrial cavity size and aortic root appear to be normal. There is no pericardial effusion. There is no thrombus noted in the left ventricle or left atrial cavity. M-MODE: MV: NORMAL AV: NORMAL TV: NORMAL PV: CHAMBER SIZE: NORMAL WALL MOTION: NORMAL PERICARDIUM: NORMAL INTERPRETATION: 1. NORMAL 2 "D" "M" MODE ECHO MTDD
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
--- NOTE | 2022-06-11 13:02 | PN ---
ADMISSION DAY: Level 5 REST OF THEM: Intermediate FINAL DAY: D as in discharge MTDD
== END 2022-05-28 15:35 | disposition home or self-care (01) | DRG 607 ==
LOC: LAB 11:30 → MEDSURG A 15:44
PROVIDERS: ADMIT Internal Medicine; ATTEND Internal Medicine
DX: Z91.19 Patient's noncompliance with other medical treatment and regimen; R26.0 Ataxic gait; J44.9 Chronic obstructive pulmonary disease, unspecified; D64.9 Anemia, unspecified; Z79.899 Other long term (current) drug therapy; R22.43 Localized swelling, mass and lump, lower limb, bilateral; E87.70 Fluid overload, unspecified; M15.0 Primary generalized (osteo)arthritis; Z51.81 Encounter for therapeutic drug level monitoring; E78.5 Hyperlipidemia, unspecified; N18.9 Chronic kidney disease, unspecified; I10 Essential (primary) hypertension; J45.909 Unspecified asthma, uncomplicated; M62.81 Muscle weakness (generalized); Z20.822 Contact with and (suspected) exposure to COVID-19; E87.1 Hypo-osmolality and hyponatremia; G47.33 Obstructive sleep apnea (adult) (pediatric); R06.02 Shortness of breath